=== PATIENT | male | born 1965 | race Caucasian/White ===

== ENCOUNTER → 2016-08-24 | Outpatient (REF) | payer OTHER ==
[~2016-08-24] MED LIST: AMBI10TA PO; CLON1TAB PO; NICO21PAT TD; OMEP40CA2 PO; XANA0.25 PO
== END ==
LOC: EEVIPCON 16:14 → M LAB REF 16:14
PROVIDERS: ATTEND Physician Assistant
DX: L02.512 Cutaneous abscess of left hand (principal)

== ENCOUNTER 2016-11-04 09:39 | Emergency (ER) | payer OTHER ==
[~2016-11-04] VITALS: Ht 167.6 cm; Wt 78.9 kg
[2016-11-04] MEDS ORDERED: SERT-138 (09:48)
[2016-11-04] MEDS ORDERED: ASPI81TA85 PO (09:48)
[2016-11-04] MEDS ORDERED: LOSA100T37 (09:48)
[2016-11-04] MEDS ORDERED: LR 1,000 ML IV ONE (10:30)
[2016-11-04 11:01] LABS: BASO % 0.5 % (0.0-1.0); EOS # 0.2 K/mm3 (0.0-0.50); EOS % 2.8 % (0.0-3.0); LARGE UNSTAINED CELL # 0.2 K/mm3 (0.0-0.4); LARGE UNSTAINED CELL % 2.5 % (0.0-4.0); LYMPH # 1.8 K/mm3 (1.5-4.5); LYMPH % 21.1 % (24.0-44.0); MEAN CORPUSCULAR HEMOGLOBIN 30.8 pg (27.0-33.0); MEAN CORPUSCULAR HGB CONC 34.1 g/dl (32.0-36.5); MEAN CORPUSCULAR VOLUME 90.4 fl (80.0-96.0); MONO # 0.5 K/mm3 (0.0-0.8); MONO % 6.3 % (0.0-5.0); NEUTROPHILS # 5.8 K/mm3 (1.8-7.7); NEUTROPHILS % 66.9 % (36.0-66.0); PLATELET COUNT, AUTOMATED 180 k/mm3 (150-450); RED CELL DISTRIBUTION WIDTH 14.2 % (11.5-14.5); WHITE BLOOD COUNT 8.7 K/mm3 (4.0-10.0)
[2016-11-04 11:28] LABS: ALBUMIN 3.8 GM/DL (3.2-5.2); ALBUMIN/GLOBULIN RATIO 1.09 (1.00-1.93); ALKALINE PHOSPHATASE 142 U/L (45-117); ALT/SGPT 49 U/L (12-78); ANION GAP 11 MEQ/L (8-16); AST/SGOT 29 U/L (15-37); BILIRUBIN,TOTAL 0.8 MG/DL (0.2-1.0); BLOOD UREA NITROGEN 15 MG/DL (7-18); CALCIUM LEVEL 8.8 MG/DL (8.5-10.1); CARBON DIOXIDE LEVEL 22 MEQ/L (21-32); CHLORIDE LEVEL 104 MEQ/L (98-107); CREATININE FOR GFR 0.73 MG/DL (0.70-1.30); GLOMERULAR FILTRATION RATE > 60.0 (>56); GLUCOSE, FASTING 110 MG/DL (70-105); POTASSIUM SERUM 3.4 MEQ/L (3.5-5.1); SODIUM LEVEL 137 MEQ/L (136-145); TOTAL PROTEIN 7.3 GM/DL (6.4-8.2)
[2016-11-04] MEDS ORDERED: LR 1,000 ML IV SCH (11:45)
[2016-11-04] MEDS ORDERED: POTASSIUM CHLORIDE 10 MEQ SR TABLET PO ONE (11:45)
[2016-11-04] MEDS ORDERED: ONDANSETRON 4 MG ORAL DISINTEGRATING TAB (S0181) PO ONE (11:45)
[2016-11-04] MEDS ORDERED: NAPR500T2 PO (12:44)
[2016-11-04] MEDS ORDERED: TYLE325T5 PO (12:46)
[2016-11-04 13:07] VITALS: BP 131/83
== END 2016-11-04 13:14 | disposition home or self-care (01) ==
LOC: M ED 10:39
DX: A08.4 Viral intestinal infection, unspecified (principal); I10 Essential (primary) hypertension; Z79.899 Other long term (current) drug therapy; Z79.82 Long term (current) use of aspirin; Z79.891 Long term (current) use of opiate analgesic; Z87.891 Personal history of nicotine dependence

== ENCOUNTER → 2018-01-17 | Outpatient (CLI) | payer OTHER ==
[2018-01-17 13:22] LABS: BASO # 0.1 10^3/uL (0.0-0.2); BASO % 0.9 % (0.0-1.0); EOS # 0.3 10^3/uL (0.0-0.50); EOS % 2.5 % (0.0-3.0); HEMATOCRIT 44.4 % (42.0-52.0); IMMATURE GRANULOCYTE % 1.4 % (0-3.0); LYMPH # 2.6 10^3/uL (1.5-4.5); LYMPH % 25.8 % (24.0-44.0); MEAN CORPUSCULAR HEMOGLOBIN 30.3 pg (27.0-33.0); MEAN CORPUSCULAR HGB CONC 33.8 g/dl (32.0-36.5); MEAN CORPUSCULAR VOLUME 89.7 fl (80.0-96.0); MONO # 0.8 10^3/uL (0.0-0.8); MONO % 7.5 % (0.0-5.0); NEUTROPHILS # 6.3 10^3/uL (1.8-7.7); NEUTROPHILS % 61.9 % (36.0-66.0); PLATELET COUNT, AUTOMATED 201 10^3/uL (150-450); RED BLOOD COUNT 4.95 10^6/uL (4.30-6.10); WHITE BLOOD COUNT 10.1 10^3/uL (4.0-10.0)
[2018-01-17 13:52] LABS: ALBUMIN 3.9 GM/DL (3.2-5.2); ALBUMIN/GLOBULIN RATIO 1.08 (1.00-1.93); ALKALINE PHOSPHATASE 104 U/L (45-117); ALT/SGPT 69 U/L (12-78); ANION GAP 8 MEQ/L (8-16); AST/SGOT 29 U/L (7-37); BILIRUBIN,TOTAL 0.4 MG/DL (0.2-1.0); BLOOD UREA NITROGEN 16 MG/DL (7-18); CALCIUM LEVEL 9.5 MG/DL (8.5-10.1); CARBON DIOXIDE LEVEL 28 MEQ/L (21-32); CHLORIDE LEVEL 103 MEQ/L (98-107); CHOLESTEROL LEVEL 280 MG/DL (<200); CHOLESTEROL RISK RATIO 8.235 (<5); CREATININE FOR GFR 0.89 MG/DL (0.70-1.30); GLOMERULAR FILTRATION RATE > 60.0 (>56); GLUCOSE, FASTING 142 MG/DL (70-100); HDL CHOLESTEROL 34 MG/DL (>40); NON-HDL-C 246 MG/DL; POTASSIUM SERUM 4.5 MEQ/L (3.5-5.1); SODIUM LEVEL 139 MEQ/L (136-145); TOTAL PROTEIN 7.5 GM/DL (6.4-8.2); TRIGLYCERIDES LEVEL 1042 MG/DL (<150)
== END ==
LOC: M WUC 09:19
DX: Z79.899 Other long term (current) drug therapy (principal)
CPT/HCPCS: 84443

== ENCOUNTER → 2018-02-13 | Outpatient (CLI) | payer OTHER ==
[2018-02-13 12:49] LABS: BASO % 0.5 % (0.0-1.0); EOS # 0.2 10^3/uL (0.0-0.50); EOS % 2.4 % (0.0-3.0); HEMATOCRIT 40.8 % (42.0-52.0); HEMOGLOBIN 14.3 g/dl (13.5-17.5); IMMATURE GRANULOCYTE % 0.6 % (0-3.0); LYMPH # 2.5 10^3/uL (1.5-4.5); LYMPH % 31.7 % (24.0-44.0); MEAN CORPUSCULAR VOLUME 88.5 fl (80.0-96.0); MONO # 0.7 10^3/uL (0.0-0.8); MONO % 8.4 % (0.0-5.0); NEUTROPHILS # 4.4 10^3/uL (1.8-7.7); NEUTROPHILS % 56.4 % (36.0-66.0); PLATELET COUNT, AUTOMATED 178 10^3/uL (150-450); RED BLOOD COUNT 4.61 10^6/uL (4.30-6.10); RED CELL DISTRIBUTION WIDTH 13.8 % (11.5-14.5); WHITE BLOOD COUNT 7.8 10^3/uL (4.0-10.0)
[2018-02-13 13:22] LABS: CONTROL LINE MONO INT CTR LINE PRESENT; MONO SCRN NEGATIVE (NEGATIVE)
[2018-02-15 00:06] LABS: MUMPS VIRUS IgM ANTIBODY <0.80 AU (0.00-0.79)
[2018-02-15 00:06] LABS: MUMPS VIRUS IgG ANTIBODY 68.1 AU/mL (Immune >10.9)
== END ==
LOC: M LAB 11:46
DX: B26.9 Mumps without complication (principal)
CPT/HCPCS: 86735

== ENCOUNTER → 2018-07-30 | Outpatient (CLI) | payer OTHER ==
[~2018-07-30] MED LIST changes: +ASPI81TA85 PO; -CLON1TAB PO; +CLON1TAB8 PO; +LOSA100T5; +NAPR-885 PO; +SERT-138; +TYLE325T5 PO
[2018-07-30 09:10] LABS: CHOLESTEROL LEVEL 287 MG/DL (<200); CHOLESTEROL RISK RATIO 6.833 (<5); HDL CHOLESTEROL 42 MG/DL (>40); NON-HDL-C 245 MG/DL; TRIGLYCERIDES LEVEL 480 MG/DL (<150)
[2018-07-31 08:38] LABS: LDL DIRECT 163 mg/dL (0-99)
== END ==
LOC: M LAB 08:04
PROVIDERS: ATTEND Family Medicine
DX: E78.5 Hyperlipidemia, unspecified (principal)

== ENCOUNTER 2019-02-06 10:56 | Emergency (ER) | payer OTHER, BC ==
[~2019-02-06] VITALS: Ht 167.6 cm; Wt 84.1 kg
[~2019-02-06 10:56] MED LIST changes: +NICO21DI3 TD; -NICO21PAT TD; -OMEP40CA2 PO; +OMEP40CA97 PO
[2019-02-06] MEDS ORDERED: KETOROLAC 60 MG/2 ML VIAL (J1885) IM ONE (13:00)
--- NOTE | 2019-02-06 14:00 | REP ---
REASON FOR EXAM: Pain after trauma. COMPARISON: None. Vertebral body height and alignment is within normal limits. The disc spaces are symmetric and relatively well maintained. There is no spondylolysis or spondylolisthesis. The pedicles are intact bilaterally. IMPRESSION: Within normal limits for the patient's age. Electronically Signed by Favian Salazar DO 02/06/2019 02:18 P
--- NOTE | 2019-02-06 14:04 | REP ---
REASON: Pain after trauma. PRIORS: None. AP pelvis and bilateral hips. AP PELVIS: There is slight rather symmetric appearing hip joint space narrowing slightly asymmetric on the right. There is no acute fracture, dislocation, or subluxation. There is no prominent marginal osteophytosis or buttressing. IMPRESSION: Slight degenerative changes. TWO VIEWS OF THE RIGHT HIP: There is slight asymmetric hip joint space narrowing without buttressing or marginal osteophytosis. There is a minimal cam deformity. There is no fracture, dislocation or subluxation. LEFT HIP, TWO VIEWS: Mild rather symmetric appearing hip joint space narrowing without fracture, dislocation or subluxation. There is no prominent marginal osteophytosis or buttressing. Electronically Signed by Favian Salazar DO 02/06/2019 02:18 P
[2019-02-06] MEDS ORDERED: KETO10TAB PO (14:27)
[2019-02-06 14:38] VITALS: BP 134/90
== END 2019-02-06 14:35 | disposition home or self-care (01) ==
LOC: M ED 10:56
DX: S70.01XA Contusion of right hip, initial encounter (principal); S70.02XA Contusion of left hip, initial encounter; S39.012A Strain of muscle, fascia and tendon of lower back, initial encounter; V43.53XA Car driver injured in collision with pick-up truck in traffic accident, initial encounter
CPT/HCPCS: 72110; 73521; 96372; 99283; J1885

== ENCOUNTER → 2020-01-19 | Outpatient (CLI) | payer BC ==
[~2020-01-19] MED LIST changes: -ASPI81TA85 PO; +ASPI81TA86 PO; +ATOR80TA59; +BUPR150T3; +BUPR300T92; +CLON1TAB8; +DOXY100T27; +KETO10TAB PO; +LOSA50TA5; +OMEP-218; +TERB250T12
[2020-02-15 19:32] LABS: BASO # 0.1 10^3/uL (0.0-0.2); BASO % 0.4 % (0.0-1.0); EOS # 0.2 10^3/uL (0.0-0.5); EOS % 1.5 % (0.0-3.0); HEMATOCRIT 42.7 % (42.0-52.0); HEMOGLOBIN 14.4 g/dl (13.5-17.5); LYMPH # 3.6 10^3/uL (1.5-5.0); LYMPH % 24.2 % (24.0-44.0); MEAN CORPUSCULAR HEMOGLOBIN 29.7 pg (27.0-33.0); MEAN CORPUSCULAR HGB CONC 33.7 g/dl (32.0-36.5); MONO # 0.9 10^3/uL (0.0-0.8); MONO % 6.2 % (0.0-5.0); NEUTROPHILS # 9.9 10^3/uL (1.5-8.5); NEUTROPHILS % 67.2 % (36.0-66.0); PLATELET COUNT, AUTOMATED 203 10^3/uL (150-450); RED BLOOD COUNT 4.85 10^6/uL (4.30-6.10); WHITE BLOOD COUNT 14.7 10^3/uL (4.0-10.0)
== END ==
LOC: M LAB 08:14
PROVIDERS: ATTEND Family Medicine
DX: E78.5 Hyperlipidemia, unspecified (principal)

== ENCOUNTER 2020-03-14 14:07 | Emergency (ER) | payer BC ==
[~2020-03-14] VITALS: Ht 167.6 cm; Wt 81.8 kg
[~2020-03-14 14:07] MED LIST changes: -ATOR80TA59; -BUPR150T3; -BUPR300T92; -CLON1TAB8; -DOXY100T27; -LOSA50TA5; -OMEP-218; -TERB250T12
[2020-03-14] MEDS ORDERED: ATOR80TA59 (14:17)
[2020-03-14] MEDS ORDERED: BUPR300T92 (14:17)
[2020-03-14] MEDS ORDERED: CLON1TAB8 (14:17)
[2020-03-14] MEDS ORDERED: LOSA50TA5 (14:17)
[2020-03-14] MEDS ORDERED: TERB250T12 (14:17)
[2020-03-14] MEDS ORDERED: DOXY100T27 (14:17)
[2020-03-14] MEDS ORDERED: OMEP-218 (14:17)
[2020-03-14] MEDS ORDERED: BUPR150T3 (14:17)
[2020-03-14] MEDS ORDERED: NORCO, ANEXSIA 5/325MG TABLET (HYDROcodone/ACETAMINOPHEN) PO ONE (16:30)
--- NOTE | 2020-03-14 17:32 | REPVR ---
PROCEDURE INFORMATION: Exam: XR Left Knee Exam date and time: 03/14/2020 4:17 PM Age: 54 years old Clinical indication: Injury or trauma; Fall; Initial encounter; Sprain or strain; Patella or knee; Left; Additional info: Fall pain TECHNIQUE: Imaging protocol: XR Left knee. Views: 4 or more views. COMPARISON: No relevant prior studies available. FINDINGS: There is a thin band of calcium along the inferior aspect of the patella near the patellar tendon insertion. This could be calcium from an old injury or new injury. There is only minimal soft tissue prominence. No lucent fracture line is seen. IMPRESSION: 1. No evidence of major fracture. 2. Thin band of calcium anterior patella may be old injury or new. Electronically signed by: Will Martines On 03/14/2020 17:32:15 PM
[2020-03-14 18:03] VITALS: BP 132/92
== END 2020-03-14 18:05 | disposition home or self-care (01) ==
LOC: M ED 14:07
DX: S86.912A Strain of unspecified muscle(s) and tendon(s) at lower leg level, left leg, initial encounter (principal); W19.XXXA Unspecified fall, initial encounter; Y92.018 Other place in single-family (private) house as the place of occurrence of the external cause; I10 Essential (primary) hypertension; K21.9 Gastro-esophageal reflux disease without esophagitis; Z79.899 Other long term (current) drug therapy; Z79.82 Long term (current) use of aspirin

== ENCOUNTER 2020-03-22 09:57 | Outpatient (RCR) | payer BC ==
[~2020-03-22 09:57] MED LIST changes: +ATOR80TA59; +BUPR150T3; +BUPR300T92; +CLON1TAB8; +DOXY100T27; +LOSA50TA5; +OMEP-218; +TERB250T12
== END 2020-03-23 ==
LOC: M PT 09:57
PROVIDERS: ATTEND Physician Assistant
DX: M50.10 Cervical disc disorder with radiculopathy, unspecified cervical region (principal)

== ENCOUNTER 2020-04-19 10:22 | Outpatient (RCR) | payer BC | END 2020-04-23 | LOC: M PT 10:22 | PROVIDERS: ATTEND Physician Assistant | DX: Z47.89 Encounter for other orthopedic aftercare (principal); M54.12 Radiculopathy, cervical region; M50.30 Other cervical disc degeneration, unspecified cervical region ==

== ENCOUNTER 2020-05-17 09:07 | Outpatient (RCR) | payer BC | END 2020-05-23 | LOC: M PT 09:07 | PROVIDERS: ATTEND Physician Assistant | DX: M54.12 Radiculopathy, cervical region (principal); M50.30 Other cervical disc degeneration, unspecified cervical region ==

== ENCOUNTER 2020-05-31 09:15 | Outpatient (RCR) | payer BC ==
[2020-06-22] MEDS ORDERED: VALI5TAB PO (00:56)
[2020-06-22] MEDS ORDERED: LOSA50TA5 PO (04:36)
[2020-06-22] MEDS ORDERED: DIAZ5TAB PO (04:36)
[2020-06-22] MEDS ORDERED: ACET-897 PO (04:36)
[2020-06-22] MEDS ORDERED: ATOR80TA59 PO (04:36)
[2020-06-22] MEDS ORDERED: OMEP1CAP73 PO (04:36)
[2020-06-22] MEDS ORDERED: BUPR300T92 PO (04:36)
[2020-06-22] MEDS ORDERED: ASPI-161 PO (04:36)
[2020-06-22] MEDS ORDERED: ZOLP10TA2 PO (04:36)
[2020-06-24] MEDS ORDERED: AMOX875T2 PO (11:42)
== END 2020-06-23 ==
LOC: M PT 09:15
PROVIDERS: ATTEND Physician Assistant
DX: Z47.89 Encounter for other orthopedic aftercare (principal); M54.12 Radiculopathy, cervical region

== ENCOUNTER 2020-06-21 22:02 | Inpatient (IN) | payer BC ==
[~2020-06-21] VITALS: Ht 167.6 cm; Wt 84.1 kg
[2020-06-21] MEDS ORDERED: NS 1,000 ML IV ONE (23:00)
[2020-06-21] MEDS ORDERED: KETOROLAC 30 MG/ML 1ML VIAL IV ONE (23:00)
[2020-06-22] MEDS ORDERED: ONDANSETRON 4MG/2ML VIAL IV ONE
[2020-06-22 00:20] LABS: INR 0.99; PROTHROMBIN TIME 13.3 SECONDS (12.5-14.3)
[2020-06-22 00:21] LABS: BASO # 0.1 10^3/uL (0.0-0.2); BASO % 0.4 % (0.0-1.0); EOS # 0.2 10^3/uL (0.0-0.5); EOS % 1.1 % (0.0-3.0); HEMATOCRIT 43.2 % (42.0-52.0); HEMOGLOBIN 14.2 g/dl (13.5-17.5); LYMPH # 3.2 10^3/uL (1.5-5.0); LYMPH % 19.1 % (24.0-44.0); MEAN CORPUSCULAR HEMOGLOBIN 28.7 pg (27.0-33.0); MEAN CORPUSCULAR HGB CONC 32.9 g/dl (32.0-36.5); MEAN CORPUSCULAR VOLUME 87.3 fl (80.0-96.0); MONO # 1.5 10^3/uL (0.0-0.8); MONO % 8.6 % (0.0-5.0); NEUTROPHILS # 11.8 10^3/uL (1.5-8.5); NEUTROPHILS % 69.7 % (36.0-66.0); PARTIAL THROMBOPLASTIN TIME 36.5 SECONDS (24.2-38.5); PLATELET COUNT, AUTOMATED 207 10^3/uL (150-450); RED BLOOD COUNT 4.95 10^6/uL (4.30-6.10); WHITE BLOOD COUNT 16.9 10^3/uL (4.0-10.0)
[2020-06-22] MEDS: GASTROGRAFIN SOLUTION 30ML PO SCH ×2 (00:28→00:57)
[2020-06-22 00:35] LABS: ALT/SGPT 50 U/L (12-78); BILIRUBIN,DIRECT 0.2 MG/DL (0.0-0.2); BILIRUBIN,TOTAL 0.8 MG/DL (0.2-1.0); BLOOD UREA NITROGEN 9 MG/DL (7-18); CALCIUM LEVEL 9.5 MG/DL (8.5-10.1); CARBON DIOXIDE LEVEL 26 MEQ/L (21-32); CHLORIDE LEVEL 104 MEQ/L (98-107); CREATININE FOR GFR 0.88 MG/DL (0.70-1.30); GLOMERULAR FILTRATION RATE > 60.0 (>56); GLUCOSE, FASTING 135 MG/DL (70-100); LIPASE 65 U/L (73-393); POTASSIUM SERUM 3.6 MEQ/L (3.5-5.1); SODIUM LEVEL 136 MEQ/L (136-145); TOTAL PROTEIN 7.7 GM/DL (6.4-8.2)
[2020-06-22] MEDS ORDERED: VALI5TAB PO (00:56)
[2020-06-22] MEDS ORDERED: ISOVUE-370 76% 100ML VIAL As Ordered ONE (01:51)
[2020-06-22] MEDS ORDERED: MORPHINE 2 MG/ML 1ML VIAL (J2270) IV ONE (02:30)
--- NOTE | 2020-06-22 02:33 | REPVR ---
PROCEDURE INFORMATION: Exam: CT Abdomen and Pelvis with Contrast Exam date and time: 06/22/20 (1:56am) Age: 54 years old Clinical indication: Left-sided abdominal pain. Possible perforated diverticulitis. TECHNIQUE: Imaging protocol: Computed tomography of the abdomen and pelvis with intravenous contrast. Radiation optimization: All CT scans at this facility use at least one of these dose optimization techniques: automated exposure control; mA and/or kV adjustment per patient size (includes targeted exams where dose is matched to clinical indication); or iterative reconstruction. Contrast material: Iso Contrast volume: 100 ml Contrast route: IV Other contrast: Oral, ggraphin, 600; COMPARISON: CT ABDOMEN PELVIS of 03/10/16 FINDINGS: Lower lung smyth: Mild hypoventilatory changes at the right lung base. No pleural effusions. Liver: Normal. No solid mass. Gallbladder and bile ducts: Normal. No calcified stones. No ductal dilatation. Pancreas: No ductal dilatation. Inflamed distal pancreas, with peripancreatic hazy fat changes. Spleen: Prominent spleen. Adrenal glands: Normal. No mass. Kidneys and ureters: No hydronephrosis. Right renal cyst (18 mm size), posterolaterally at the midpole level. Stomach and bowel: Thickened, inflamed left colon with scattered diverticuli and pericolic inflammation. No abscess. No bowel obstruction. Diseased colonic segment extends from splenic flexure to distal left colon (approx. 11 cm length of diseased colon). Inflammation also involves the distal pancreas, also. Sigmoid diverticulosis changes also noted. Appendix: A normal appendix is visualized. Intraperitoneal space: No free air. No significant fluid collection. Vasculature: Unremarkable. No abdominal aortic aneurysm. Lymph nodes: Unremarkable. No enlarged lymph nodes. Urinary bladder: Unremarkable as visualized. Reproductive: Unremarkable as visualized. Bones/joints: Unremarkable. No acute fracture. Soft tissues: Unremarkable. IMPRESSION: Acute perforated diverticulitis involving the left colon. Moderate pericolic inflammation. No abscess. No bowel obstruction. No free air. Inflammation also involves the distal pancreas (perhaps secondary to the adjacent colonic inflammation). Sigmoid diverticulosis changes also present. Electronically signed by: Betsy Hopper On 06/22/2020 02:32:58 AM
[2020-06-22] MEDS ORDERED: CIPROFLOXACIN 400 MG in IV 1 EA IV ONE (03:00)
--- NOTE | 2020-06-22 03:17 | ED PDOC ---
Post-Departure Follow-Up 54 yo M with a history significant for diverticular disease who presents with ab dominal pain. He reports that he had a flare of his diverticulitis on June 05, and called his doctor the next day who started him on a 7 day course of Cipro and Flagyl. He completed the medication, and was feeling better until last night when he suddenly developed sharp, constant LUQ pain that radiates to his epigastrum. He took Tylenol with no relief. His associated symptoms include nausea, vomiting, and SOB (due to pain). He denies fever, chills, increased sweating, diarrhea, bloody stool, CP, leg pain/swelling, recent travel/hospitalization, palpitations or other symptoms. He has LUQ and epigastric tenderness with guarding. He is tachycardic, but afebrile, hemodynamically stable and nontoxic appearing. His symptoms are concerning for complicated diveriticulitis vs pancreatitis vs hepatobiliary disease. Labs, imaging and EKG were obtained. He was given IVF and Toradol 30mg IV for analgesia. His work up was notable for acute perforated diverticulitis. He was started on IV abx. Dr. Rodriguez was consulted, and will admit to his service if his imaging indeed shows diverticulitis with perforation. However, if his imaging is cons istent with uncomplicated diverticulitis he will recommended a medicine admission. KWADWO LARES MD Jun 22, 2020 03:17
[2020-06-22] MEDS ORDERED: D5W/0.45% SODIUM CHLORIDE 1,000 ML IV SCH (03:30)
[2020-06-22] MEDS ORDERED: MORPHINE 4 MG/ML 1ML VIAL/SYRINGE (J2270) IV ONE (03:45)
[2020-06-22] MEDS ORDERED: metroNIDAZOLE 500 MG in IV 1 EA IV ONE (04:00)
[2020-06-22] MEDS ORDERED: diazePAM 5MG TABLET PO PRN (04:15)
[2020-06-22] MEDS ORDERED: KETOROLAC 30 MG/ML 1ML VIAL IV PRN (04:15)
[2020-06-22] MEDS ORDERED: ACETAMINOPHEN TAB 650MG DOSE (2X325MG) PO PRN (04:15)
[2020-06-22] MEDS ORDERED: ONDANSETRON 4MG/2ML VIAL IV PRN (04:15)
[2020-06-22] MEDS ORDERED: ACET-897 PO (04:36)
[2020-06-22] MEDS ORDERED: ATOR80TA59 PO (04:36)
[2020-06-22] MEDS ORDERED: LOSA50TA5 PO (04:36)
[2020-06-22] MEDS ORDERED: BUPR300T92 PO (04:36)
[2020-06-22] MEDS ORDERED: OMEP1CAP73 PO (04:36)
[2020-06-22] MEDS ORDERED: ZOLP10TA2 PO (04:36)
[2020-06-22] MEDS ORDERED: ASPI-161 PO (04:36)
[2020-06-22] MEDS ORDERED: DIAZ5TAB PO (04:36)
[2020-06-22] MEDS: PIPERACILLIN/TAZOBACTAM SOD 3.375 GM in D5W MINI-BAG PLUS 50 ML IV SCH ×3 (05:53→17:43)
[2020-06-22] MEDS: MORPHINE 2 MG/ML 1ML VIAL (J2270) IV PRN ×4 (07:38→21:53)
[2020-06-22] MEDS: LR 1,000 ML IV SCH ×2 (07:38→21:53)
--- NOTE | 2020-06-22 07:46 | ECGEPIP ---
[facility] - ED Test Date: 2020-06-21 Pat Name: VIKI CONNER Department: Room: - Gender: Male Rigger Up: deandre : 1965 Requested By: KWADWO Balderas Order Number: [id number] Reading MD: Conner Verma Measurements Intervals [place]ult Rate: 108 P: 41 AK: 363 QRS: 14 QRSD: 98 T: 53 QT: 332 QTc: 447 Interpretive Statements Sinus tachycardia The computer has read pacer spikes which appears to be artifact Comparison tracing not on file Electronically Signed on 06-22-2020 7:46:08 EST by Conner Verma
[2020-06-22] MEDS: LOSARTAN 50MG TABLET PO SCH (09:18)
[2020-06-22] MEDS: ATORVASTATIN 20 MG TAB PO SCH (09:18)
[2020-06-22] MEDS: OMEPRAZOLE 20 MG CAP PO SCH (09:18)
[2020-06-22] MEDS: buPROPion **XL** TABLET 150MG (WELLBUTRIN XL) PO SCH (09:18)
[2020-06-22 12:09] LABS: BASO % 0.3 % (0.0-1.0); EOS # 0.1 10^3/uL (0.0-0.5); EOS % 0.7 % (0.0-3.0); HEMATOCRIT 38.3 % (42.0-52.0); HEMOGLOBIN 13.1 g/dl (13.5-17.5); LYMPH # 1.9 10^3/uL (1.5-5.0); MEAN CORPUSCULAR HEMOGLOBIN 30.2 pg (27.0-33.0); MEAN CORPUSCULAR HGB CONC 34.2 g/dl (32.0-36.5); MEAN CORPUSCULAR VOLUME 88.2 fl (80.0-96.0); MONO # 1.3 10^3/uL (0.0-0.8); MONO % 8.4 % (0.0-5.0); NEUTROPHILS # 12.2 10^3/uL (1.5-8.5); NEUTROPHILS % 78.2 % (36.0-66.0); PLATELET COUNT, AUTOMATED 188 10^3/uL (150-450); RED BLOOD COUNT 4.34 10^6/uL (4.30-6.10); WHITE BLOOD COUNT 15.6 10^3/uL (4.0-10.0)
[2020-06-22 14:00] VITALS: BP 138/66
[2020-06-22 18:00] VITALS: BP 139/88
--- NOTE | 2020-06-22 20:39 | IPN ---
PROGRESS NOTE DATE: 06/22/2020 HISTORY OF PRESENT ILLNESS: The patient was admitted very early this morning with a diagnosis of a contained perforation of diverticulitis in the proximal descending colon with significant pericolonic inflammatory changes. There was no evidence of free air. He has a history of previous sigmoid diverticulitis but never in this particular area. He was started on Zosyn and only recently came to the floor from a holding bed in the Emergency Department. VITAL SIGNS: He has been afebrile since admission. His pulse has ranged in the 90's to low 100's. His blood pressure is good and his room air oxygen saturation is normal. Intake and Output shows that he has taken 300 mL of clear liquids. His urine output appears adequate though he reports that the urine has been somewhat dark. PHYSICAL EXAMINATION: The patient is lying quietly on the hospital bed. He reports that the pain is slightly better than it had been in the middle of the night. The abdomen is mildly protuberant. He does have bowel sounds. There is tenderness on palpation in the left upper quadrant and in the left flank area, but it does seem slightly diminished from early in the morning. LABORATORY STUDIES: The patient had a repeat CBC with a differential at approximately noon today. This revealed a white count of 16, hemoglobin 13, hematocrit 38 and a platelet count of 188,000. Differential count showed 78% neutrophils, 12% lymphocytes and 8% monocytes. IMPRESSION: The patient is doing well on Zosyn currently. He reports that his discomfort is slightly diminished. His white count remains approximately unchanged with a slight left shift. PLAN: The patient will remain on the Zosyn. I will not advance his diet at this point and he will remain on clear liquids. We will monitor his urine output. I will repeat another CBC with a differential in the morning. CARYN
[2020-06-22] MEDS: zolPIDEM TARTRATE 5 MG TAB PO PRN (21:52)
[2020-06-22 22:00] VITALS: BP 139/88
[2020-06-23] MEDS: PIPERACILLIN/TAZOBACTAM SOD 3.375 GM in D5W MINI-BAG PLUS 50 ML IV SCH ×5 (00:31→23:08)
[2020-06-23 02:00] VITALS: BP 137/86
[2020-06-23] MEDS: MORPHINE 2 MG/ML 1ML VIAL (J2270) IV PRN (05:06)
[2020-06-23 06:00] VITALS: BP 133/85
[2020-06-23] MEDS ORDERED: FLUBLOK(EGG FREE)(QUAD)INFLUENZA VACC 0.5ML SYRINGE 18YRS & OLDER IM ONE (09:00)
[2020-06-23] MEDS: buPROPion **XL** TABLET 150MG (WELLBUTRIN XL) PO SCH (09:26)
[2020-06-23] MEDS: ATORVASTATIN 20 MG TAB PO SCH (09:26)
[2020-06-23] MEDS: OMEPRAZOLE 20 MG CAP PO SCH (09:26)
[2020-06-23] MEDS: LOSARTAN 50MG TABLET PO SCH (09:28)
[2020-06-23 09:30] LABS: BASO # 0.1 10^3/uL (0.0-0.2); BASO % 0.5 % (0.0-1.0); EOS # 0.1 10^3/uL (0.0-0.5); EOS % 0.9 % (0.0-3.0); HEMATOCRIT 38.5 % (42.0-52.0); HEMOGLOBIN 12.2 g/dl (13.5-17.5); LYMPH # 2.4 10^3/uL (1.5-5.0); LYMPH % 21.9 % (24.0-44.0); MEAN CORPUSCULAR HEMOGLOBIN 28.6 pg (27.0-33.0); MEAN CORPUSCULAR HGB CONC 31.7 g/dl (32.0-36.5); MEAN CORPUSCULAR VOLUME 90.2 fl (80.0-96.0); MONO # 0.9 10^3/uL (0.0-0.8); MONO % 8.4 % (0.0-5.0); NEUTROPHILS # 7.4 10^3/uL (1.5-8.5); NEUTROPHILS % 67.8 % (36.0-66.0); PLATELET COUNT, AUTOMATED 209 10^3/uL (150-450); RED BLOOD COUNT 4.27 10^6/uL (4.30-6.10); WHITE BLOOD COUNT 10.9 10^3/uL (4.0-10.0)
[2020-06-23 09:47] LABS: BLOOD UREA NITROGEN 7 MG/DL (7-18); CALCIUM LEVEL 8.7 MG/DL (8.5-10.1); CARBON DIOXIDE LEVEL 26 MEQ/L (21-32); CHLORIDE LEVEL 109 MEQ/L (98-107); GLOMERULAR FILTRATION RATE > 60.0 (>56); GLUCOSE, FASTING 137 MG/DL (70-100); POTASSIUM SERUM 3.9 MEQ/L (3.5-5.1); SODIUM LEVEL 140 MEQ/L (136-145)
[2020-06-23] MEDS ORDERED: IBUPROFEN 600MG TAB PO PRN (11:00)
[2020-06-23] MEDS ORDERED: PERCOCET 5MG/325MG TAB PO PRN (11:00)
--- NOTE | 2020-06-23 12:24 | IPN ---
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 His white count was elevated and he had marked tenderness. He reports that he is feeling better since yesterday. PHYSICAL EXAMINATION: VITAL SIGNS: Show that he has been afebrile over the past 24 hours. Pulse is in the low 90s and his blood pressure is good. Room air oxygen saturation is normal. Intake and output show that yesterday he had 3100 in with only 100 mL of urine recorded but he reports that he has been getting up to void. His urine output today so far is 1300 by comparison. GENERAL: The patient is lying quietly on the hospital bed. He is moving much more comfortably today. He denies any nausea or vomiting. HEART: Regular rhythm. LUNGS: Clear. ABDOMEN: Minimally protuberant. He has active bowel sounds. The abdomen is soft throughout, only some mild tenderness high in the left upper quadrant. LABORATORY STUDIES: White count has come down to 11 thousand today from 16 yesterday. Hemoglobin is 12 with hematocrit 38 and platelet count is 209 thousand. Differential count is slightly more normal with neutrophil count of 68, lymphocytes of 22, monocytes of 8. Chemistry profile shows slight elevation of his glucose at 137 for a non-fasting specimen. IMPRESSION: The patient is clearly much more comfortable today with significantly reduced pain and tenderness. He has tolerated clear liquids. PLAN: I will put him back on regular diet. I will stop his IV fluid as he appears to be taking adequate PO liquids. I will recheck his CBC in the morning and if he continues to be comfortable and tolerates his regular diet he can be discharged home tomorrow on oral antibiotics for outpatient follow up. CARYN
[2020-06-23 13:51] VITALS: BP 128/83
--- NOTE | 2020-06-23 14:20 | HPE ---
HISTORY AND PHYSICAL DATE OF ADMISSION: 06/22/2020 ADMITTING DIAGNOSIS: Descending colon diverticulitis, possible contained diverticular perforation. HISTORY OF PRESENT ILLNESS: The patient is a pleasant 54-year-old man who presented to the emergency department at approximately 10 o'clock in the evening on the 21 of June complaining of abdominal pain. He reports a history of previous diverticulitis. There have been several episodes noted over the past few years. Generally, the discomfort has been localized to his left lower quadrant. He reports that he developed some discomfort consistent with another attack of his diverticulitis in his left lower quadrant back on about the 06 of June. He contacted his primary physician's office and was started on ciprofloxacin and Flagyl as an outpatient. He apparently did well with resolution of his abdominal pain. On , the patient noted the onset of some vomiting leading to some dry heaves. This seems to improve; but on Saturday night the 20 of June, he noted the onset of some abdominal discomfort more in the left upper quadrant. 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 He noted some chills on Saturday night the . He was awakened by more significant abdominal pain on the . The discomfort persisted and became more severe in his left upper quadrant. He noted discomfort with movement and with deep inspiration. He presented to the emergency department where he was found to be tachycardic. His white blood cell count was elevated and a CT scan of the abdomen and pelvis showed inflammatory changes involving the proximal descending colon with thickening of the colonic wall and significant pericolonic inflammatory changes at the level of the tail of the pancreas. I was consulted, and the patient is now admitted for management of his diverticulitis with possible contained diverticular perforation. ALLERGIES: The patient denies any known drug allergies. MEDICATIONS: Include only - - Tylenol as needed for pain - aspirin 81 mg daily - losartan/hydrochlorothiazide 50/12.5 mg p.o. daily - omeprazole 40 mg p.o. daily - atorvastatin 80 mg p.o. daily - bupropion hydrochloride XL 300 p.o. daily - diazepam 2.5 mg p.o. t.i.d. as needed for anxiety PAST MEDICAL HISTORY: Significant for some hypertension. He has a history of anxiety. He has some shoulder pains. He has a history of some insomnia. PAST SURGICAL HISTORY: Significant for bilateral shoulder surgeries for rotator cuff repairs. He had a colonoscopy he believes about five or six years ago. SOCIAL HISTORY: The patient is . He is a former smoker and had been smoking about one pack per day, but reports he has had no tobacco in about six months. He denies any alcohol use or use of unprescribed medications. REVIEW OF SYSTEMS: Reveals no history of chest pain or palpitations. He has no shortness of breath, cough, wheezing, or sputum production. He denies any melena or hematochezia. He has had no history of pancreatitis, hepatitis, or peptic ulcer disease. He has a distant history of hepatitis. He has no dysuria or hematuria. He has some pains in his shoulders, but no other significant orthopedic issues. There is no history of DVT or pulmonary embolus. He denies any history of seizure or stroke. He reports that he has had occasional episodes that he describes as a sudden onset of dizziness with a sense of impending fall and he has just sat down and these pass rapidly. PHYSICAL EXAMINATION: GENERAL APPEARANCE: Revealed a middle-aged man lying quietly on the hospital stretcher. VITAL SIGNS: When I went to see him most recently showed him to be afebrile. His pulse was in the mid to upper 90s with a normal blood pressure and a normal room air oxygen saturation. SKIN: Warm and dry. Sclerae are anicteric. Mucous membranes are moist. NECK: Supple without mass or bruit. HEART: Shows a regular rhythm. LUNGS: Clear. He clearly has pain in his left upper quadrant with deep inspiration. ABDOMEN: Perhaps mildly distended. He has bowel sounds present. There is no evidence inguinal or umbilical hernia. The abdomen is soft, but there is marked tenderness to palpation high in the left upper quadrant, particularly laterally and along the left flank. EXTREMITIES: Without peripheral edema and he has palpable radial and pedal pulses. LABORATORY DATA: In the emergency department showed a white count of 17,000, hemoglobin 14, hematocrit 43, and a platelet count of 207,000. His differential count showed 70% neutrophils, 19% lymphocytes, and 9% monocytes. Chemistry profile showed a sodium of 136, potassium 3.6, chloride 104, CO2 of 26, BUN of 9, creatinine 0.9, and a glucose of 135. Liver function tests are entirely normal with a normal lipase. Coagulation factors were normal. His COVID testing was negative. IMAGING: CT scan of the abdomen and pelvis I reviewed personally. The radiologist had interpreted this as showing acute perforated diverticulitis involving the left colon with some moderate pericolonic inflammation. There was no evidence of free air or abscess. On my review, I would agree that he has some significant pericolonic inflammation with a small amount of free fluid in this area. There is some thickening of this segment of the colon. He clearly has diverticulosis involving the sigmoid and descending colon at least. There may be a small air bubble within the wall of the colon in this area, which could represent a diverticulum or potential contained perforation. IMPRESSION: Proximal descending diverticulitis with marked left upper quadrant pain and tenderness. PLAN: The patient will be admitted for antibiotic therapy. I have recommended that we place him on Zosyn for antibiotic coverage. He has had a course of ciprofloxacin and Flagyl recently. I have recommended that he remain n.p.o. at this point until we see how he responds. We will repeat a CBC with differential in the morning. He will be provided with analgesics as necessary. If he responds readily to the antibiotics, I advised him that he will likely be able to be discharged in the next two to three days on oral antibiotics. The patient had an opportunity to ask questions and these were answered to the best of my ability. He is agreeable with the plan for admission.
[2020-06-23 19:21] VITALS: BP_SYST 134; BP_SYST 143; BP_DIAS 101; BP_DIAS 92
[2020-06-23 22:00] VITALS: BP 136/76
[2020-06-23] MEDS: zolPIDEM TARTRATE 5 MG TAB PO PRN (23:08)
[2020-06-24 02:00] VITALS: BP 114/71
[2020-06-24] MEDS: PIPERACILLIN/TAZOBACTAM SOD 3.375 GM in D5W MINI-BAG PLUS 50 ML IV SCH (05:47)
[2020-06-24 06:00] VITALS: BP 112/75
[2020-06-24 07:41] LABS: BASO # 0.1 10^3/uL (0.0-0.2); BASO % 0.7 % (0.0-1.0); EOS # 0.2 10^3/uL (0.0-0.5); EOS % 2.6 % (0.0-3.0); HEMATOCRIT 37.9 % (42.0-52.0); HEMOGLOBIN 12.2 g/dl (13.5-17.5); LYMPH # 1.7 10^3/uL (1.5-5.0); LYMPH % 23.4 % (24.0-44.0); MEAN CORPUSCULAR HEMOGLOBIN 28.6 pg (27.0-33.0); MEAN CORPUSCULAR HGB CONC 32.2 g/dl (32.0-36.5); MEAN CORPUSCULAR VOLUME 88.8 fl (80.0-96.0); MONO # 0.6 10^3/uL (0.0-0.8); MONO % 8.3 % (0.0-5.0); NEUTROPHILS # 4.8 10^3/uL (1.5-8.5); NEUTROPHILS % 64.7 % (36.0-66.0); PLATELET COUNT, AUTOMATED 220 10^3/uL (150-450); RED BLOOD COUNT 4.27 10^6/uL (4.30-6.10); WHITE BLOOD COUNT 7.4 10^3/uL (4.0-10.0)
[2020-06-24] MEDS: OMEPRAZOLE 20 MG CAP PO SCH (09:34)
[2020-06-24] MEDS: buPROPion **XL** TABLET 150MG (WELLBUTRIN XL) PO SCH (09:34)
[2020-06-24 09:35] VITALS: BP 132/80
[2020-06-24] MEDS: LOSARTAN 50MG TABLET PO SCH (09:35)
[2020-06-24] MEDS: ATORVASTATIN 20 MG TAB PO SCH (09:36)
[2020-06-24] MEDS ORDERED: AMOX875T2 PO (11:42)
== END 2020-06-24 12:10 | disposition home or self-care (01) | DRG 244 ==
LOC: M ED 22:02 → M ED INP 06-22 04:08 → M MSPAV 06-22 13:55
PROVIDERS: ADMIT Surgery; ATTEND Surgery
DX: K57.20 Diverticulitis of large intestine with perforation and abscess without bleeding (principal)

== ENCOUNTER → 2020-09-14 | Outpatient (CLI) | payer BC ==
[~2020-09-14] MED LIST changes: +ACET-897 PO; +AMOX875T2 PO; +ASPI-161 PO; +ATOR80TA59 PO; +BUPR150T12; -BUPR150T3; +BUPR300T92 PO; +DIAZ5TAB PO; +LOSA50TA5 PO; +OMEP1CAP73 PO; +VALI5TAB PO; +ZOLP10TA2 PO
== END ==
LOC: M LABSMTC 11:34
PROVIDERS: ATTEND Anesthesiology
DX: Z01.812 Encounter for preprocedural laboratory examination (principal); Z20.822 Contact with and (suspected) exposure to COVID-19

== ENCOUNTER 2020-09-19 09:27 | Day surgery (SDC) | payer OTHER ==
[~2020-09-19] VITALS: Ht 167.6 cm; Wt 80.7 kg
[~2020-09-19 09:27] MED LIST changes: +NS 1,000 ML IV ONE
[2020-09-19] MEDS ORDERED: VITMTA PO (09:52)
[2020-09-19] MEDS ORDERED: LIDOCAINE 2% 100MG/5ML SDV (FOR ANES.) As Ordered ONE (10:39)
[2020-09-19] MEDS ORDERED: propofoL 200 MG/20 ML VIAL As Ordered ONE (10:39)
--- NOTE | 2020-09-19 11:08 | ROOR ---
Patient Name: Danie Cooper Procedure Date: 09/19/2020 10:50 AM Date of : 1965 Age: 54 Room: [facility] Gender: Male Note Status: Finalized Procedure: Total Colonoscopy to Cecum Indications: Screening for colorectal malignant neoplasm Providers: Adolph Hernandez MD Referring MD: Franko Benites MD Requesting Provider: Medicines: Monitored Anesthesia Care Complications: No immediate complications. Procedure: Pre-Anesthesia Assessment: - The heart rate, respiratory rate, oxygen saturations, blood pressure, adequacy of pulmonary ventilation, and response to care were monitored throughout the procedure. The Colonoscope was introduced through the anus and advanced to the cecum, identified by appendiceal orifice and ileocecal valve. The colonoscopy was performed without difficulty. The patient tolerated the procedure well. The quality of the bowel preparation was excellent. Findings: The perianal and digital rectal examinations were normal. Non-bleeding internal hemorrhoids were found during retroflexion. The hemorrhoids were small and Grade I (internal hemorrhoids that do not prolapse). Multiple small and large-mouthed diverticula were found in the recto-sigmoid colon, sigmoid colon and descending colon. The exam was otherwise without abnormality on direct and retroflexion views. Impression: - Non-bleeding internal hemorrhoids. - Diverticulosis in the recto-sigmoid colon, in the sigmoid colon and in the descending colon. - The examination was otherwise normal on direct and retroflexion views. - No specimens collected. - The exam was otherwise normal to the cecum. Recommendation: - Patient has a contact number available for emergencies. The signs and symptoms of potential delayed complications were discussed with the patient. Return to normal activities tomorrow. Written discharge instructions were provided to the patient. - High fiber diet. - Discharge patient to home. - Continue present medications. - Repeat colonoscopy in 10 years for screening purposes. - Return to referring physician. - The findings and recommendations were discussed with the patient. Procedure Code(s): --- Professional --- 75371, Colonoscopy, flexible; diagnostic, including collection of specimen(s) by brushing or washing, when performed (separate procedure) Diagnosis Code(s): --- Professional --- Z12.11, Encounter for screening for malignant neoplasm of colon K64.0, First degree hemorrhoids K57.30, Diverticulosis of large intestine without perforation or abscess without bleeding CPT copyright 2019 [employer]. All rights reserved. The codes documented in this report are preliminary and upon helper/driver review may be revised to meet current compliance requirements. Adolph Hernandez MD Adolph Hernandez MD 09/19/2020 11:07:46 AM Electronically signed by Adolph Hernandez MD Number of Addenda: 0 Note Initiated On: 09/19/2020 10:50 AM Estimated Blood Loss: Estimated blood loss: none.
[2020-09-19 11:30] VITALS: BP 117/80
== END 2020-09-19 11:56 | disposition home or self-care (01) ==
LOC: M OPP 09:27
PROVIDERS: ATTEND Internal Medicine Gastroenterology
DX: Z12.11 Encounter for screening for malignant neoplasm of colon (principal); K57.30 Diverticulosis of large intestine without perforation or abscess without bleeding; K64.0 First degree hemorrhoids; Z79.82 Long term (current) use of aspirin; Z79.899 Other long term (current) drug therapy; Z87.891 Personal history of nicotine dependence; Z86.718 Personal history of other venous thrombosis and embolism

== ENCOUNTER → 2020-12-22 | Outpatient (CLI) | payer OTHER ==
[~2020-12-22] MED LIST changes: +ISOVUE-300 61% 50ML VIAL As Ordered ONE; -NS 1,000 ML IV ONE; +OMEP40CA4 PO; -OMEP40CA97 PO; +PROHANCE 279.3MG/ML 5ML VIAL As Ordered ONE; +VITMTA PO
--- NOTE | 2020-12-22 10:31 | REP ---
INDICATION: IMPINGEMENT SYNDROME OF LEFT SHOULDER. COMPARISON: None. TECHNIQUE: The injection procedure is performed and dictated separately. Pre and post intra-articular gadolinium enhanced saline injected imaging is acquired. Imaging planes include axial, oblique coronal, oblique sagittal and ABER projection images. T1 and T2-weighted scans are included with and without fat saturation. FINDINGS: Pre-injection images demonstrate subcortical cyst formation in the superolateral humeral head. There is a glenohumeral joint effusion and subacromial subdeltoid bursal effusion. Pre-injection images demonstrate a full-thickness retracted complete tear of the supraspinatus tendon. There is mild skeletal muscle atrophy in the supraspinatus muscle. There is narrowing of the subacromial space with a remodeling change on the undersurface of the acromion process. The infraspinatus tendon appears intact. The subscapularis tendon is attenuated. The biceps tendon is dislocated medially but appears intact. Post injection imaging shows good filling and enhancement of the left glenohumeral articulation. There is diffuse chondromalacia with a 8 mm focal area of nearly full-thickness articular cartilage loss in the glenoid. There is fraying of the anterior glenoid labral cartilage. The superior labral cartilage shows heterogeneous increased T1 and T2 signal intensity consistent with a degenerative tear. ABER images do not show evidence of an anterior labral cartilage tear. Post injection T1 fat sat images show post injection enhancement throughout the subacromial subdeltoid bursal effusion as well as the glenohumeral joint fluid. IMPRESSION: Complete retracted supraspinatus cuff tear with narrowing of the subacromial space remodeling of the undersurface of the acromion process. Pre-injection joint effusion in the glenohumeral articulation. The there is medial dislocation of the biceps tendon. Advanced tendinosis and diffuse thinning of the subscapularis tendon. Glenoid chondromalacia. Mild muscle atrophy is seen in the supraspinatus muscle. There is evidence of a degenerative tear of the superior labral cartilage. <Electronically signed by Sergio Castro > 12/22/20 1026
--- NOTE | 2020-12-22 12:50 | REP ---
INDICATION: IMPINGEMENT SYNDROME OF LEFT SHOULDER COMPARISON: None. TECHNIQUE: The procedure was performed under the direct supervision of Dr. Castro. The benefits and risks including but not limited to pain, infection, bleeding and anaphylaxis were explained to the patient and informed consent was obtained. The left glenohumeral joint space was localized using fluoroscopic guidance. The skin was prepped and draped in a sterile fashion. 1% lidocaine was used as a local anesthetic. Using fluoroscopic guidance a 22 gauge spinal needle was inserted and advanced into the joint. 0.5 ml of Isovue-300 was injected to verify placement. 11 ml of a solution containing 20 ml of sterile saline and 0.15 ml of ProHance was injected into the joint. The needle was removed and the patient was taken to MRI for postprocedural imaging. The patient tolerated the procedure well and there were no immediate complications. Less than 6 seconds of fluoro time was utilized for this procedure. FINDINGS: None IMPRESSION: Fluoro guidance for left shoulder MRI arthrogram injection. <Electronically signed by Justin Nicole > 12/22/20 1158 <Electronically signed by Sergio Castro > 12/22/20 1245
== END ==
LOC: M RADPRO 08:14
PROVIDERS: ATTEND Physician Assistant
DX: R93.7 Abnormal findings on diagnostic imaging of other parts of musculoskeletal system (principal); M75.42 Impingement syndrome of left shoulder
CPT/HCPCS: 23350; 73223; 77002; A9576; Q9967

== ENCOUNTER → 2021-01-17 | Outpatient (CLI) | payer OTHER ==
[~2021-01-17] MED LIST changes: -ISOVUE-300 61% 50ML VIAL As Ordered ONE; -PROHANCE 279.3MG/ML 5ML VIAL As Ordered ONE
[2021-01-17 08:50] LABS: BLOOD UREA NITROGEN 10 MG/DL (7-18); CALCIUM LEVEL 9.7 MG/DL (8.5-10.1); CARBON DIOXIDE LEVEL 29 MEQ/L (21-32); CHLORIDE LEVEL 106 MEQ/L (98-107); CREATININE FOR GFR 0.74 MG/DL (0.70-1.30); GLOMERULAR FILTRATION RATE > 60.0 (>56); GLUCOSE, FASTING 123 MG/DL (70-100); POTASSIUM SERUM 4.3 MEQ/L (3.5-5.1); SODIUM LEVEL 139 MEQ/L (136-145)
--- NOTE | 2021-01-17 22:02 | ECGEPIP ---
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 Sinus tachycardia was noted. Electronically Signed on 01-17-2021 22:02:06 EDT by Romero Rosario
== END ==
LOC: M LAB 08:01
PROVIDERS: ATTEND Orthopaedic Surgery
DX: Z01.812 Encounter for preprocedural laboratory examination (principal); Z01.810 Encounter for preprocedural cardiovascular examination

== ENCOUNTER 2021-02-15 07:00 | Outpatient (RCR) | payer OTHER | END 2021-02-21 | LOC: M PT 07:00 | PROVIDERS: ATTEND Physician Assistant | DX: M75.122 Complete rotator cuff tear or rupture of left shoulder, not specified as traumatic (principal) ==

== ENCOUNTER → 2021-03-07 | Outpatient (CLI) | payer OTHER ==
[2021-03-07 09:40] LABS: HEMATOCRIT 44.2 % (42.0-52.0); HEMOGLOBIN 14.4 g/dl (13.5-17.5); MEAN CORPUSCULAR HEMOGLOBIN 29.4 pg (27.0-33.0); MEAN CORPUSCULAR HGB CONC 32.6 g/dl (32.0-36.5); MEAN CORPUSCULAR VOLUME 90.2 fl (80.0-96.0); PLATELET COUNT, AUTOMATED 227 10^3/uL (150-450); WHITE BLOOD COUNT 13.3 10^3/uL (4.0-10.0)
[2021-03-07 10:12] LABS: ALT/SGPT 56 U/L (12-78); BILIRUBIN,TOTAL 0.3 MG/DL (0.2-1.0); BLOOD UREA NITROGEN 14 MG/DL (7-18); CALCIUM LEVEL 9.6 MG/DL (8.5-10.1); CARBON DIOXIDE LEVEL 29 MEQ/L (21-32); CHLORIDE LEVEL 106 MEQ/L (98-107); CHOLESTEROL LEVEL 202 MG/DL (<200); CREATININE FOR GFR 0.75 MG/DL (0.70-1.30); GLOMERULAR FILTRATION RATE > 60.0 (>56); GLUCOSE, FASTING 139 MG/DL (70-100); HDL CHOLESTEROL 44 MG/DL (>40); LDL CHOLESTEROL 90 MG/DL (<100); NON-HDL-C 158 MG/DL; POTASSIUM SERUM 4.4 MEQ/L (3.5-5.1); SODIUM LEVEL 139 MEQ/L (136-145); TOTAL PROTEIN 7.2 GM/DL (6.4-8.2); TRIGLYCERIDES LEVEL 340 MG/DL (<150)
== END ==
LOC: M LAB 08:54
PROVIDERS: ATTEND Family Medicine
DX: I10 Essential (primary) hypertension (principal)

== ENCOUNTER 2021-03-21 07:33 | Outpatient (RCR) | payer OTHER | END 2021-03-23 | LOC: M PT 07:33 | PROVIDERS: ATTEND Physician Assistant | DX: M75.122 Complete rotator cuff tear or rupture of left shoulder, not specified as traumatic (principal) ==

== ENCOUNTER 2021-04-18 07:39 | Outpatient (RCR) | payer OTHER ==
[~2021-04-18 07:39] MED LIST changes: -TERB250T12; +TERB250T91
== END 2021-04-23 ==
LOC: M PT 07:39
PROVIDERS: ATTEND Physician Assistant
DX: M75.122 Complete rotator cuff tear or rupture of left shoulder, not specified as traumatic (principal)

== ENCOUNTER 2021-05-16 07:31 | Outpatient (RCR) | payer OTHER ==
[~2021-05-16 07:31] MED LIST changes: +OMEP-173; -OMEP-218
== END 2021-05-23 ==
LOC: M PT 07:31
PROVIDERS: ATTEND Physician Assistant
DX: Z47.89 Encounter for other orthopedic aftercare (principal); M75.122 Complete rotator cuff tear or rupture of left shoulder, not specified as traumatic

== ENCOUNTER 2021-06-22 07:45 | Outpatient (RCR) | payer MEDICAID, OTHER ==
[~2021-06-22 07:45] MED LIST changes: -OMEP-173; +OMEP-218
== END 2021-06-23 ==
LOC: M PT 07:45
PROVIDERS: ATTEND Physician Assistant
DX: M75.122 Complete rotator cuff tear or rupture of left shoulder, not specified as traumatic (principal)

== ENCOUNTER 2021-07-20 09:15 | Outpatient (RCR) | payer OTHER ==
[~2021-07-20 09:15] MED LIST changes: +OMEP-173; -OMEP-218
== END 2021-07-24 ==
LOC: M PT 09:15
PROVIDERS: ATTEND Physician Assistant
DX: M75.122 Complete rotator cuff tear or rupture of left shoulder, not specified as traumatic (principal)

== ENCOUNTER 2021-08-03 07:44 | Outpatient (RCR) | payer OTHER | END 2021-08-21 | LOC: M PT 07:44 | PROVIDERS: ATTEND Physician Assistant | DX: Z47.89 Encounter for other orthopedic aftercare (principal); M75.122 Complete rotator cuff tear or rupture of left shoulder, not specified as traumatic ==

== ENCOUNTER → 2021-08-28 | Outpatient (CLI) | payer OTHER ==
[~2021-08-28] MED LIST changes: +ISOVUE-300 61% 50ML VIAL As Ordered ONE; +LIDOCAINE 1% MDV 20ML VIAL As Ordered ONE; +methylPREDNISolone SUSP 40MG/ML 1ML VIAL (DEPO MEDROL) As Ordered ONE
== END ==
LOC: M RADPRO 12:49
PROVIDERS: ATTEND Physician Assistant
DX: M75.22 Bicipital tendinitis, left shoulder (principal)
CPT/HCPCS: 20610; 77002; J1030; Q9967

== ENCOUNTER 2022-01-15 21:28 | Emergency (ER) | payer OTHER ==
[~2022-01-15] VITALS: Ht 167.6 cm; Wt 85.0 kg
[~2022-01-15 21:28] MED LIST changes: -ISOVUE-300 61% 50ML VIAL As Ordered ONE; -LIDOCAINE 1% MDV 20ML VIAL As Ordered ONE; -methylPREDNISolone SUSP 40MG/ML 1ML VIAL (DEPO MEDROL) As Ordered ONE
[2022-01-15] MEDS ORDERED: VALI10TA PO (21:34)
[2022-01-16 02:38] LABS: BASO # 0.1 10^3/uL (0.0-0.2); BASO % 0.5 % (0.0-1.0); EOS # 0.1 10^3/uL (0.0-0.5); EOS % 1.2 % (0.0-3.0); HEMOGLOBIN 15.1 g/dl (13.5-17.5); LYMPH # 2.9 10^3/uL (1.5-5.0); LYMPH % 25.5 % (24.0-44.0); MEAN CORPUSCULAR HEMOGLOBIN 29.5 pg (27.0-33.0); MEAN CORPUSCULAR HGB CONC 34.3 g/dl (32.0-36.5); MEAN CORPUSCULAR VOLUME 86.1 fl (80.0-96.0); MONO # 0.8 10^3/uL (0.0-0.8); MONO % 7.4 % (2.0-8.0); NEUTROPHILS # 7.4 10^3/uL (1.5-8.5); PLATELET COUNT, AUTOMATED 263 10^3/uL (150-450); RED BLOOD COUNT 5.11 10^6/uL (4.30-6.10); WHITE BLOOD COUNT 11.4 10^3/uL (4.0-10.0)
[2022-01-16 03:39] LABS: BLOOD UREA NITROGEN 10 MG/DL (7-18); GLUCOSE, FASTING 137 MG/DL (70-100)
[2022-01-16 03:40] LABS: ALBUMIN 4.5 GM/DL (3.2-5.2); ALT/SGPT 41 IU/L (0-32); BILIRUBIN,DIRECT 0.1 MG/DL (0.0-0.2); BILIRUBIN,TOTAL 0.7 MG/DL (0.2-1.0); CALCIUM LEVEL 9.7 MG/DL (8.5-10.1); CARBON DIOXIDE LEVEL 25 mmol/L (20-29); CHLORIDE LEVEL 106 MEQ/L (98-107); CREATININE FOR GFR 0.77 MG/DL (0.70-1.30); GLOMERULAR FILTRATION RATE > 60.0 (>56); LIPASE 90 U/L (73-393); POTASSIUM SERUM 3.8 MEQ/L (3.5-5.1); SODIUM LEVEL 141 MEQ/L (136-145); TOTAL PROTEIN 7.8 GM/DL (6.4-8.2)
[2022-01-16 03:41] LABS: CK-MB VALUE MASS 4.8 NG/ML (<3.6); MB/CK RELATIVE INDEX 1.09 (< OR =4)
[2022-01-16] MEDS ORDERED: MECLIZINE 25 MG TABLET PO ONE (04:15)
[2022-01-16] MEDS ORDERED: MECL1TAB31 PO (05:03)
[2022-01-16 05:12] VITALS: BP 132/90
== END 2022-01-16 05:18 | disposition home or self-care (01) ==
LOC: M ED 21:28
DX: H81.10 Benign paroxysmal vertigo, unspecified ear (principal); R94.6 Abnormal results of thyroid function studies; I10 Essential (primary) hypertension; E78.5 Hyperlipidemia, unspecified; F41.9 Anxiety disorder, unspecified; K21.9 Gastro-esophageal reflux disease without esophagitis; Z79.899 Other long term (current) drug therapy; Z79.82 Long term (current) use of aspirin

== ENCOUNTER → 2022-02-21 | Outpatient (CLI) | payer OTHER ==
[~2022-02-21] MED LIST changes: +MECL1TAB31 PO; +VALI10TA PO
== END ==
LOC: M WUC 08:50
PROVIDERS: ATTEND Physician Assistant
DX: M25.571 Pain in right ankle and joints of right foot (principal); R22.41 Localized swelling, mass and lump, right lower limb

== ENCOUNTER → 2022-03-05 | Outpatient (CLI) | payer OTHER ==
[2022-03-05 07:31] LABS: HEMATOCRIT 39.1 % (42.0-52.0); HEMOGLOBIN 13.2 g/dl (13.5-17.5); MEAN CORPUSCULAR HGB CONC 33.8 g/dl (32.0-36.5); MEAN CORPUSCULAR VOLUME 88.9 fl (80.0-96.0); PLATELET COUNT, AUTOMATED 251 10^3/uL (150-450); WHITE BLOOD COUNT 15.6 10^3/uL (4.0-10.0)
[2022-03-05 08:07] LABS: ALBUMIN 3.8 GM/DL (3.2-5.2); ALT/SGPT 32 U/L (12-78); ATYPICAL LYMPH 3 % (0-5); BILIRUBIN,TOTAL 0.4 MG/DL (0.2-1.0); BLOOD UREA NITROGEN 16 MG/DL (7-18); CALCIUM LEVEL 9.2 MG/DL (8.5-10.1); CARBON DIOXIDE LEVEL 27 MEQ/L (21-32); CHLORIDE LEVEL 104 MEQ/L (98-107); CREATININE FOR GFR 0.76 MG/DL (0.70-1.30); EOSINOPHILS 2 % (0-3); FREE T3 3.1 PG/ML (2.2-4.0); FREE T4 0.73 NG/DL (0.76-1.46); GLOMERULAR FILTRATION RATE > 60.0 (>56); GLUCOSE, FASTING 171 MG/DL (70-100); LYMPHOCYTES 24 % (16-44); MONOCYTES 6 % (0-5); NEUTROPHILS 64 % (28-66); POTASSIUM SERUM 3.4 MEQ/L (3.5-5.1); PROSTATIC SPECIFIC AG MONITOR 1.39 NG/ML (< 4.00); SODIUM LEVEL 137 MEQ/L (136-145); TOTAL PROTEIN 6.6 GM/DL (6.4-8.2)
[2022-03-05 08:12] LABS: MICROCYTOSIS 1+
[2022-03-05 08:15] LABS: SPHEROCYTES 1+
[2022-03-05 08:16] LABS: PLATELET ESTIMATE NORMAL (NORMAL)
[2022-03-05 08:17] LABS: HEMOGLOBIN A1c 6.7 %
[2022-03-05 08:24] LABS: BASO # 0.1 10^3/uL (0.0-0.2); BASO % 0.5 % (0.0-1.0); EOS # 0.2 10^3/uL (0.0-0.5); EOS % 1.5 % (0.0-3.0); LYMPH # 4.1 10^3/uL (1.5-5.0); MONO # 1.3 10^3/uL (0.0-0.8); NEUTROPHILS # 9.9 10^3/uL (1.5-8.5); NEUTROPHILS % 63.7 % (36.0-66.0)
== END ==
LOC: M LAB 06:15
PROVIDERS: ATTEND Family Medicine
DX: Z12.5 Encounter for screening for malignant neoplasm of prostate (principal); I10 Essential (primary) hypertension; D72.829 Elevated white blood cell count, unspecified; E07.9 Disorder of thyroid, unspecified; R73.01 Impaired fasting glucose

== ENCOUNTER → 2022-03-06 | Outpatient (CLI) | payer OTHER | LOC: M WUC 08:30 | PROVIDERS: ATTEND Physician Assistant Medical | DX: M77.31 Calcaneal spur, right foot (principal); M25.571 Pain in right ankle and joints of right foot; S93.401A Sprain of unspecified ligament of right ankle, initial encounter; X58.XXXA Exposure to other specified factors, initial encounter; Y92.9 Unspecified place or not applicable; Y93.9 Activity, unspecified; Y99.9 Unspecified external cause status ==

== ENCOUNTER 2022-05-02 05:51 | Emergency (ER) | payer OTHER ==
[~2022-05-02] VITALS: Ht 167.6 cm; Wt 86.4 kg
[2022-05-02] MEDS ORDERED: predniSONE 20 MG TAB PO ONE (08:55)
[2022-05-02] MEDS ORDERED: methocarbamoL 500 MG TAB PO ONE (08:55)
[2022-05-02] MEDS ORDERED: METH-1164 PO (09:28)
[2022-05-02 09:42] VITALS: BP 132/77
== END 2022-05-02 09:43 | disposition home or self-care (01) ==
LOC: M ED 05:51
DX: S46.012A Strain of muscle(s) and tendon(s) of the rotator cuff of left shoulder, initial encounter (principal); Y99.0 Civilian activity done for income or pay; Z79.82 Long term (current) use of aspirin; Z79.899 Other long term (current) drug therapy
CPT/HCPCS: 73030; 99284; J7512

== ENCOUNTER → 2022-07-03 | Outpatient (CLI) | payer OTHER ==
[~2022-07-03] MED LIST changes: +METH-1164 PO
[2022-07-03 08:41] LABS: BASO # 0.1 10^3/uL (0.0-0.2); BASO % 0.4 % (0.0-1.0); EOS # 0.2 10^3/uL (0.0-0.5); EOS % 1.7 % (0.0-3.0); HEMATOCRIT 42.3 % (42.0-52.0); HEMOGLOBIN 13.9 g/dl (13.5-17.5); LYMPH # 3.2 10^3/uL (1.5-5.0); MEAN CORPUSCULAR HEMOGLOBIN 29.1 pg (27.0-33.0); MEAN CORPUSCULAR HGB CONC 32.9 g/dl (32.0-36.5); MEAN CORPUSCULAR VOLUME 88.7 fl (80.0-96.0); MONO # 0.9 10^3/uL (0.0-0.8); MONO % 7.1 % (2.0-8.0); NEUTROPHILS # 8.7 10^3/uL (1.5-8.5); NEUTROPHILS % 66.5 % (36.0-66.0); PLATELET COUNT, AUTOMATED 227 10^3/uL (150-450); RED BLOOD COUNT 4.77 10^6/uL (4.30-6.10); WHITE BLOOD COUNT 13.1 10^3/uL (4.0-10.0)
[2022-07-03 08:44] LABS: HEMOGLOBIN A1c 6.4 % (4.0-6.0)
[2022-07-03 08:58] LABS: ALBUMIN 4.2 G/DL (3.2-5.2); ALKALINE PHOSPHATASE 117 U/L (46-116); ALT/SGPT 47 U/L (7.0-40); AST/SGOT 27 U/L (<34); BILIRUBIN,TOTAL 0.4 MG/DL (0.3-1.2); BLOOD UREA NITROGEN 10 MG/DL (9-23); CALCIUM LEVEL 9.7 MG/DL (8.5-10.1); CARBON DIOXIDE LEVEL 27 MMOL/L (20-31); CHLORIDE LEVEL 103 MMOL/L (98-107); GLOMERULAR FILTRATION RATE > 60.0 (>56); GLUCOSE, FASTING 157 MG/DL (60-100); POTASSIUM SERUM 4.1 MMOL/L (3.5-5.1); SODIUM LEVEL 138 MMOL/L (136-145); TOTAL PROTEIN 7.3 G/DL (5.7-8.2)
== END ==
LOC: M LAB 07:52
PROVIDERS: ATTEND Family Medicine
DX: D72.829 Elevated white blood cell count, unspecified (principal); Z12.5 Encounter for screening for malignant neoplasm of prostate; I10 Essential (primary) hypertension; R73.01 Impaired fasting glucose

== ENCOUNTER → 2022-08-01 | Outpatient (CLI) | payer OTHER ==
[~2022-08-01] MED LIST changes: +PROHANCE 279.3MG/ML 15ML VIAL As Ordered ONE; +PROHANCE 279.3MG/ML 5ML VIAL As Ordered ONE
== END ==
LOC: M RAD 14:12
PROVIDERS: ATTEND Family Medicine
DX: R93.3 Abnormal findings on diagnostic imaging of other parts of digestive tract (principal); R16.0 Hepatomegaly, not elsewhere classified; N28.1 Cyst of kidney, acquired
CPT/HCPCS: 74183; A9576

== ENCOUNTER → 2022-08-30 | Outpatient (CLI) | payer OTHER ==
[~2022-08-30] MED LIST changes: -PROHANCE 279.3MG/ML 15ML VIAL As Ordered ONE; -PROHANCE 279.3MG/ML 5ML VIAL As Ordered ONE
[2022-08-30 06:58] LABS: BASO # 0.1 10^3/uL (0.0-0.2); BASO % 0.6 % (0.0-1.0); EOS # 0.2 10^3/uL (0.0-0.5); HEMATOCRIT 41.7 % (42.0-52.0); HEMOGLOBIN 13.6 g/dl (13.5-17.5); LYMPH # 2.9 10^3/uL (1.5-5.0); LYMPH % 18.6 % (24.0-44.0); MEAN CORPUSCULAR HEMOGLOBIN 28.6 pg (27.0-33.0); MEAN CORPUSCULAR HGB CONC 32.6 g/dl (32.0-36.5); MEAN CORPUSCULAR VOLUME 87.8 fl (80.0-96.0); MONO % 6.6 % (2.0-8.0); NEUTROPHILS # 11.5 10^3/uL (1.5-8.5); NEUTROPHILS % 72.8 % (36.0-66.0); PLATELET COUNT, AUTOMATED 329 10^3/uL (150-450); RED BLOOD COUNT 4.75 10^6/uL (4.30-6.10); WHITE BLOOD COUNT 15.7 10^3/uL (4.0-10.0)
[2022-08-30 07:31] LABS: HEMOGLOBIN A1c 6.5 % (4.0-6.0)
[2022-08-30 07:33] LABS: ALBUMIN 3.7 G/DL (3.2-5.2); ALKALINE PHOSPHATASE 123 U/L (46-116); ALT/SGPT 53 U/L (7.0-40); AST/SGOT 14 U/L (<34); BILIRUBIN,TOTAL 0.3 MG/DL (0.3-1.2); BLOOD UREA NITROGEN 15 MG/DL (9-23); CALCIUM LEVEL 9.5 MG/DL (8.5-10.1); CARBON DIOXIDE LEVEL 28 MMOL/L (20-31); CHLORIDE LEVEL 105 MMOL/L (98-107); CHOLESTEROL LEVEL 153 MG/DL (<200); CHOLESTEROL RISK RATIO 4.29 (<5); CREATININE FOR GFR 0.53 MG/DL (0.70-1.30); FREE T4 1.05 NG/DL (0.89-1.76); GLOMERULAR FILTRATION RATE > 60.0 (>56); GLUCOSE, FASTING 132 MG/DL (60-100); HDL CHOLESTEROL 35.6 MG/DL (>40); NON-HDL-C 117.4 MG/DL; POTASSIUM SERUM 3.9 MMOL/L (3.5-5.1); SODIUM LEVEL 140 MMOL/L (136-145); THYROID STIMULATING HORMONE 2.295 uIU/ML (0.55-4.78); TOTAL PROTEIN 6.5 G/DL (5.7-8.2); TRIGLYCERIDES LEVEL 387 MG/DL (<150)
== END ==
LOC: M LAB 06:12
PROVIDERS: ATTEND Physician Assistant
DX: I10 Essential (primary) hypertension (principal); F41.9 Anxiety disorder, unspecified; F32.A Depression, unspecified; R53.83 Other fatigue; E78.5 Hyperlipidemia, unspecified; R73.09 Other abnormal glucose

== ENCOUNTER → 2022-08-30 | Outpatient (CLI) | payer OTHER ==
[2022-08-30 06:57] LABS: HEMOGLOBIN 13.7 g/dl (13.5-17.5); MEAN CORPUSCULAR HEMOGLOBIN 29.5 pg (27.0-33.0); MEAN CORPUSCULAR HGB CONC 33.4 g/dl (32.0-36.5); MEAN CORPUSCULAR VOLUME 88.2 fl (80.0-96.0); PLATELET COUNT, AUTOMATED 334 10^3/uL (150-450); RED BLOOD COUNT 4.65 10^6/uL (4.30-6.10)
== END ==
LOC: M LAB 06:14
PROVIDERS: ATTEND Surgery
DX: K57.30 Diverticulosis of large intestine without perforation or abscess without bleeding (principal)

== ENCOUNTER → 2022-09-12 | Outpatient (CLI) | payer OTHER ==
[~2022-09-12] MED LIST changes: +GASTROGRAFIN SOLUTION 30ML As Ordered ONE; +ISOVUE-370 76% 100ML VIAL As Ordered ONE
== END ==
LOC: M RAD 12:01
PROVIDERS: ATTEND Physician Assistant
DX: K57.32 Diverticulitis of large intestine without perforation or abscess without bleeding (principal); K57.30 Diverticulosis of large intestine without perforation or abscess without bleeding; K83.1 Obstruction of bile duct; R16.1 Splenomegaly, not elsewhere classified; N28.1 Cyst of kidney, acquired
CPT/HCPCS: 74177; Q9963; Q9967

== ENCOUNTER 2022-12-06 07:53 | Day surgery (SDC) | payer OTHER ==
[~2022-12-06] VITALS: Ht 167.6 cm; Wt 75.6 kg
[~2022-12-06 07:53] MED LIST changes: -GASTROGRAFIN SOLUTION 30ML As Ordered ONE; -ISOVUE-370 76% 100ML VIAL As Ordered ONE; +LEXA1TAB PO; +LOSA50TA28 PO; +PANT40TA29 PO
[2022-12-06] MEDS: NS 1,000 ML IV ONE (08:11)
[2022-12-06] MEDS ORDERED: propofoL 500 MG/50 ML VIAL As Ordered ONE (08:16)
[2022-12-06] MEDS ORDERED: LIDOCAINE 2% 100MG/5ML SDV (FOR ANES.) As Ordered ONE (08:18)
[2022-12-06] MEDS ORDERED: fentaNYL 100 MCG/2 ML INJECTION As Ordered ONE (08:36)
[2022-12-06] MEDS ORDERED: ePHEDrine SULFATE 25 MG/5 ML(5MG/ML) SYRINGE As Ordered ONE (09:32)
[2022-12-06 09:54] VITALS: BP 140/79; O2SAT 100
== END 2022-12-06 10:05 | disposition home or self-care (01) ==
LOC: M OPP 07:53
PROVIDERS: ATTEND Surgery
DX: K57.30 Diverticulosis of large intestine without perforation or abscess without bleeding (principal); K21.9 Gastro-esophageal reflux disease without esophagitis; K31.89 Other diseases of stomach and duodenum; I10 Essential (primary) hypertension; F41.9 Anxiety disorder, unspecified; F32.A Depression, unspecified; G62.9 Polyneuropathy, unspecified; B19.10 Unspecified viral hepatitis B without hepatic coma; E78.5 Hyperlipidemia, unspecified; Z87.891 Personal history of nicotine dependence; Z79.82 Long term (current) use of aspirin; Z79.899 Other long term (current) drug therapy
CPT/HCPCS: 43239; 45378; 88305; J3010

== ENCOUNTER → 2022-12-13 | Outpatient (REF) | payer OTHER | LOC: M SFHCPLAZ 08:52 | PROVIDERS: ATTEND Family Medicine | DX: Z53.9 Procedure and treatment not carried out, unspecified reason (principal) ==

== ENCOUNTER → 2022-12-31 | Outpatient (CLI) | payer OTHER ==
[2022-12-31 11:46] LABS: BASO # 0.1 10^3/uL (0.0-0.2); BASO % 0.7 % (0.0-1.0); EOS # 0.3 10^3/uL (0.0-0.5); EOS % 2.1 % (0.0-3.0); HEMATOCRIT 43.6 % (42.0-52.0); HEMOGLOBIN 14.5 g/dl (13.5-17.5); LYMPH # 3.3 10^3/uL (1.5-5.0); MEAN CORPUSCULAR HGB CONC 33.3 g/dl (32.0-36.5); MEAN CORPUSCULAR VOLUME 90.1 fl (80.0-96.0); MONO # 1.1 10^3/uL (0.0-0.8); MONO % 9.2 % (2.0-8.0); NEUTROPHILS # 6.9 10^3/uL (1.5-8.5); NEUTROPHILS % 59.5 % (36.0-66.0); PLATELET COUNT, AUTOMATED 254 10^3/uL (150-450); RED BLOOD COUNT 4.84 10^6/uL (4.30-6.10); WHITE BLOOD COUNT 11.7 10^3/uL (4.0-10.0)
[2022-12-31 11:58] LABS: HEMOGLOBIN A1c 5.7 % (4.0-6.0)
[2022-12-31 12:10] LABS: ALBUMIN 4.1 G/DL (3.2-5.2); ALKALINE PHOSPHATASE 89 U/L (46-116); ALT/SGPT 33 U/L (7.0-40); AST/SGOT 17 U/L (<34); BILIRUBIN,TOTAL 0.4 MG/DL (0.3-1.2); BLOOD UREA NITROGEN 16 MG/DL (9-23); CALCIUM LEVEL 9.4 MG/DL (8.5-10.1); CARBON DIOXIDE LEVEL 28 MMOL/L (20-31); CHLORIDE LEVEL 106 MMOL/L (98-107); CHOLESTEROL LEVEL 152 MG/DL (<200); CHOLESTEROL RISK RATIO 3.56 (<5); CREATININE FOR GFR 0.64 MG/DL (0.70-1.30); GLOMERULAR FILTRATION RATE > 60.0 (>56); GLUCOSE, FASTING 142 MG/DL (60-100); HDL CHOLESTEROL 42.6 MG/DL (>40); NON-HDL-C 109.4 MG/DL; POTASSIUM SERUM 4.2 MMOL/L (3.5-5.1); SODIUM LEVEL 141 MMOL/L (136-145); TOTAL PROTEIN 6.6 G/DL (5.7-8.2); TRIGLYCERIDES LEVEL 332 MG/DL (<150)
[2022-12-31 12:11] LABS: FREE T4 0.98 NG/DL (0.89-1.76)
== END ==
LOC: M PLALAB 08:33
PROVIDERS: ATTEND Family Medicine
DX: I95.1 Orthostatic hypotension (principal); R79.89 Other specified abnormal findings of blood chemistry; E78.1 Pure hyperglyceridemia; Z12.5 Encounter for screening for malignant neoplasm of prostate

== ENCOUNTER → 2023-01-18 | Outpatient (CLI) | payer OTHER | LOC: M RAD 06:01 | PROVIDERS: ATTEND Family Medicine | DX: Z12.2 Encounter for screening for malignant neoplasm of respiratory organs (principal); F17.211 Nicotine dependence, cigarettes, in remission ==

== ENCOUNTER 2023-01-26 19:17 | Emergency (ER) | payer OTHER ==
[~2023-01-26] VITALS: Ht 167.6 cm; Wt 76.9 kg
[2023-01-26] MEDS ORDERED: HYDR-3363 (19:28)
[2023-01-26] MEDS ORDERED: DIAZ5TAB (19:28)
[2023-01-26 21:25] LABS: BASO # 0.1 10^3/uL (0.0-0.2); BASO % 0.5 % (0.0-1.0); EOS # 0.1 10^3/uL (0.0-0.5); EOS % 0.8 % (0.0-3.0); HEMATOCRIT 37.2 % (42.0-52.0); HEMOGLOBIN 12.8 g/dl (13.5-17.5); LYMPH # 2.3 10^3/uL (1.5-5.0); LYMPH % 25.3 % (24.0-44.0); MEAN CORPUSCULAR HGB CONC 34.4 g/dl (32.0-36.5); MEAN CORPUSCULAR VOLUME 87.1 fl (80.0-96.0); MONO # 0.5 10^3/uL (0.0-0.8); MONO % 5.5 % (2.0-8.0); NEUTROPHILS # 6.3 10^3/uL (1.5-8.5); NEUTROPHILS % 67.6 % (36.0-66.0); PLATELET COUNT, AUTOMATED 271 10^3/uL (150-450); RED BLOOD COUNT 4.27 10^6/uL (4.30-6.10); WHITE BLOOD COUNT 9.3 10^3/uL (4.0-10.0)
[2023-01-26 22:18] LABS: CK-MB VALUE MASS 6.2 NG/ML (<3.6)
[2023-01-26 22:22] LABS: FREE T4 0.95 NG/DL (0.89-1.76)
[2023-01-26 22:32] LABS: CPK CREATINE PHOSPHOKINASE 425 U/L (46-171); MB/CK RELATIVE INDEX 1.45 (< OR =4)
[2023-01-26 22:40] VITALS: TEMP 98.8
[2023-01-26 23:06] LABS: HEMOGLOBIN A1c 5.6 % (4.0-6.0)
[2023-01-27 00:15] VITALS: BP 125/74
[2023-01-27] MEDS ORDERED: HOLTER MONITOR XX (00:16)
[2023-01-27 00:17] VITALS: O2SAT 95
== END 2023-01-27 00:34 | disposition home or self-care (01) ==
LOC: M ED 19:17
DX: R42 Dizziness and giddiness (principal); I10 Essential (primary) hypertension; G47.00 Insomnia, unspecified; K57.92 Diverticulitis of intestine, part unspecified, without perforation or abscess without bleeding; Z86.73 Personal history of transient ischemic attack (TIA), and cerebral infarction without residual deficits; Z79.82 Long term (current) use of aspirin; Z79.899 Other long term (current) drug therapy

== ENCOUNTER → 2023-01-28 | Outpatient (CLI) | payer OTHER ==
[~2023-01-28] MED LIST changes: +DIAZ5TAB; +HOLTER MONITOR XX; +HYDR-3363
[2023-01-28 10:53] LABS: APPEARANCE, URINE HAZY (CLEAR); BACTERIA, URINE AUTO NEGATIVE (NEGATIVE); BILIRUBIN, URINE AUTO NEGATIVE (NEGATIVE); BLOOD, URINE BLOOD NEGATIVE (NEGATIVE); CALCIUM OXALATE CRYSTALS SMALL; COLOR, URINE AMBER (YELLOW); GLUCOSE, URINE (UA) AUTO NEGATIVE (NEGATIVE); KETONE, URINE AUTO TRACE mg/dL (NEGATIVE); LEUKOCYTE ESTERASE, URINE AUTO NEGATIVE (NEGATIVE); MUCUS, URINE LARGE (NEGATIVE); NITRITE, URINE AUTO NEGATIVE (NEGATIVE); PROTEIN, URINE AUTO NEGATIVE (NEGATIVE); RBC, URINE AUTO 0 /HPF (0-3); SPECIFIC GRAVITY URINE AUTO 1.026 (1.002-1.035); SQUAMOUS EPITHELIAL CELL UR AU 0 /HPF (0-6); WBC, URINE AUTO 1 /HPF (0-3)
[2023-01-28 11:02] LABS: BASO # 0.1 10^3/uL (0.0-0.2); BASO % 0.6 % (0.0-1.0); EOS # 0.1 10^3/uL (0.0-0.5); EOS % 0.9 % (0.0-3.0); HEMATOCRIT 43.4 % (42.0-52.0); HEMOGLOBIN 14.1 g/dl (13.5-17.5); LYMPH # 3.4 10^3/uL (1.5-5.0); LYMPH % 31.8 % (24.0-44.0); MEAN CORPUSCULAR HEMOGLOBIN 29.2 pg (27.0-33.0); MEAN CORPUSCULAR HGB CONC 32.5 g/dl (32.0-36.5); MEAN CORPUSCULAR VOLUME 89.9 fl (80.0-96.0); MONO # 0.8 10^3/uL (0.0-0.8); MONO % 7.3 % (2.0-8.0); NEUTROPHILS # 6.3 10^3/uL (1.5-8.5); NEUTROPHILS % 59.1 % (36.0-66.0); PLATELET COUNT, AUTOMATED 292 10^3/uL (150-450); RED BLOOD COUNT 4.83 10^6/uL (4.30-6.10); WHITE BLOOD COUNT 10.6 10^3/uL (4.0-10.0)
[2023-01-28 11:10] LABS: ERYTHROCYTE SEDIMENTATION RATE 20 mm/hr (0-20)
[2023-01-28 11:22] LABS: ALKALINE PHOSPHATASE 104 U/L (46-116); ALT/SGPT 54 U/L (7.0-40); AST/SGOT 12 U/L (<34); BILIRUBIN,TOTAL 0.6 MG/DL (0.3-1.2); BLOOD UREA NITROGEN 10 MG/DL (9-23); CARBON DIOXIDE LEVEL 24 MMOL/L (20-31); CHLORIDE LEVEL 105 MMOL/L (98-107); CREATININE FOR GFR 0.65 MG/DL (0.70-1.30); FERRITIN 201.4 NG/ML (10.5-307.3); GLOMERULAR FILTRATION RATE > 60.0 (>56); GLUCOSE, FASTING 120 MG/DL (60-100); IRON (FE) 73 UG/DL (65-175); POTASSIUM SERUM 4.2 MMOL/L (3.5-5.1); SODIUM LEVEL 141 MMOL/L (136-145); TOTAL PROTEIN 6.8 G/DL (5.7-8.2)
== END ==
LOC: M PLALAB 08:39
PROVIDERS: ATTEND Family Medicine
DX: R68.83 Chills (without fever) (principal); R71.0 Precipitous drop in hematocrit; R42 Dizziness and giddiness

== ENCOUNTER → 2023-01-29 | Outpatient (CLI) | payer OTHER ==
[2023-01-29 11:43] LABS: C REACTIVE PROTEIN QUANTITATIV < 0.40 MG/DL (<1.0)
[2023-01-29 11:45] LABS: IRON (FE) 39 UG/DL (65-175)
[2023-01-29 11:49] LABS: FERRITIN 149.8 NG/ML (10.5-307.3)
== END ==
LOC: M PLALAB 07:05
PROVIDERS: ATTEND Physician Assistant Medical
DX: R71.0 Precipitous drop in hematocrit (principal); R68.83 Chills (without fever)

== ENCOUNTER → 2023-07-11 | Outpatient (CLI) | payer OTHER ==
[~2023-07-11] MED LIST changes: +DIAZ-654 PO; +MECL-209 PO; -MECL1TAB31 PO; -VALI10TA PO
[2023-07-11 07:37] LABS: BASO # 0.1 10^3/uL (0.0-0.2); BASO % 0.7 % (0.0-1.0); EOS # 0.2 10^3/uL (0.0-0.5); EOS % 2.6 % (0.0-3.0); HEMATOCRIT 44.1 % (42.0-52.0); HEMOGLOBIN 14.8 g/dl (13.5-17.5); LYMPH # 2.8 10^3/uL (1.5-5.0); LYMPH % 32.1 % (24.0-44.0); MEAN CORPUSCULAR HEMOGLOBIN 30.3 pg (27.0-33.0); MEAN CORPUSCULAR HGB CONC 33.6 g/dl (32.0-36.5); MEAN CORPUSCULAR VOLUME 90.2 fl (80.0-96.0); MONO # 0.9 10^3/uL (0.0-0.8); MONO % 10.2 % (2.0-8.0); NEUTROPHILS # 4.6 10^3/uL (1.5-8.5); NEUTROPHILS % 53.7 % (36.0-66.0); PLATELET COUNT, AUTOMATED 242 10^3/uL (150-450); RED BLOOD COUNT 4.89 10^6/uL (4.30-6.10); WHITE BLOOD COUNT 8.6 10^3/uL (4.0-10.0)
[2023-07-11 08:02] LABS: ALBUMIN 3.7 G/DL (3.2-5.2); ALKALINE PHOSPHATASE 102 U/L (46-116); ALT/SGPT 55 U/L (7.0-40); AST/SGOT 25 U/L (<34); BILIRUBIN,TOTAL 0.2 MG/DL (0.3-1.2); BLOOD UREA NITROGEN 13 MG/DL (9-23); CALCIUM LEVEL 9.1 MG/DL (8.5-10.1); CARBON DIOXIDE LEVEL 27 MMOL/L (20-31); CHLORIDE LEVEL 105 MMOL/L (98-107); CREATININE FOR GFR 0.69 MG/DL (0.70-1.30); GLOMERULAR FILTRATION RATE > 60.0 (>56); GLUCOSE, FASTING 178 MG/DL (60-100); POTASSIUM SERUM 4.4 MMOL/L (3.5-5.1); SODIUM LEVEL 137 MMOL/L (136-145); TOTAL PROTEIN 6.5 G/DL (5.7-8.2)
[2023-07-11 08:04] LABS: THYROID STIMULATING HORMONE 1.772 uIU/ML (0.55-4.78)
[2023-07-11 10:27] LABS: HEMOGLOBIN A1c 6.1 % (4.0-6.0)
== END ==
LOC: M EKG 06:24
PROVIDERS: ATTEND Family Medicine
DX: Z01.810 Encounter for preprocedural cardiovascular examination (principal); R73.9 Hyperglycemia, unspecified; R42 Dizziness and giddiness

== ENCOUNTER → 2023-07-15 | Outpatient (CLI) | payer OTHER | LOC: M PLALAB 07:33 | PROVIDERS: ATTEND Family Medicine | DX: R73.9 Hyperglycemia, unspecified (principal) ==

== ENCOUNTER → 2024-01-17 | Outpatient (CLI) | payer OTHER ==
[~2024-01-17] MED LIST changes: -ASPI-161 PO; +ASPI-615 PO; +BUPR-597; +BUPR-597 PO; -BUPR300T92; -BUPR300T92 PO
== END ==
LOC: M PLAIMG 10:14
PROVIDERS: ATTEND Nurse Practitioner Family
DX: M25.562 Pain in left knee (principal)

== ENCOUNTER → 2024-01-23 | Outpatient (CLI) | payer OTHER ==
[~2024-01-23] MED LIST changes: +AMLO1TAB24 PO; +IBUP-1022 PO; +PRED20TA PO
== END ==
LOC: M RAD 08:34
PROVIDERS: ATTEND Family Medicine
DX: Z12.2 Encounter for screening for malignant neoplasm of respiratory organs (principal); F17.211 Nicotine dependence, cigarettes, in remission; Z53.9 Procedure and treatment not carried out, unspecified reason

== ENCOUNTER 2024-02-01 20:52 | Emergency (ER) | payer OTHER ==
[~2024-02-01] VITALS: Ht 167.6 cm; Wt 83.3 kg
[~2024-02-01 20:52] MED LIST changes: -AMLO1TAB24 PO; -IBUP-1022 PO; -PRED20TA PO
[2024-02-01 20:53] VITALS: TEMP 97; O2SAT 96
[2024-02-01 20:57] VITALS: BP 128/88
[2024-02-01] MEDS ORDERED: PRED20TA PO (21:44)
[2024-02-01] MEDS ORDERED: AMLO1TAB24 PO (21:44)
[2024-02-01 21:54] LABS: BASO % 0.1 % (0.0-1.0); HEMATOCRIT 43.5 % (42.0-52.0); HEMOGLOBIN 14.6 g/dl (13.5-17.5); LYMPH # 2.3 10^3/uL (1.5-5.0); LYMPH % 14.6 % (24.0-44.0); MEAN CORPUSCULAR HGB CONC 33.6 g/dl (32.0-36.5); MEAN CORPUSCULAR VOLUME 89.3 fl (80.0-96.0); MONO # 1.2 10^3/uL (0.0-0.8); MONO % 7.8 % (2.0-8.0); NEUTROPHILS # 12.1 10^3/uL (1.5-8.5); NEUTROPHILS % 77.1 % (36.0-66.0); PLATELET COUNT, AUTOMATED 313 10^3/uL (150-450); RED BLOOD COUNT 4.87 10^6/uL (4.30-6.10); WHITE BLOOD COUNT 15.6 10^3/uL (4.0-10.0)
[2024-02-01] MEDS: KETOROLAC 30 MG/ML 1ML VIAL IV ONE (22:05)
[2024-02-01 22:30] LABS: BLOOD UREA NITROGEN 18 MG/DL (9-23); CALCIUM LEVEL 9.7 MG/DL (8.5-10.1); CARBON DIOXIDE LEVEL 24 MMOL/L (20-31); CHLORIDE LEVEL 106 MMOL/L (98-107); CK-MB VALUE MASS 4.3 NG/ML (<3.6); CREATININE FOR GFR 0.75 MG/DL (0.70-1.30); GLOMERULAR FILTRATION RATE > 60.0 (>56); GLUCOSE, FASTING 209 MG/DL (60-100); POTASSIUM SERUM 4.5 MMOL/L (3.5-5.1); SODIUM LEVEL 138 MMOL/L (136-145)
[2024-02-01 22:42] LABS: CPK CREATINE PHOSPHOKINASE 1728 U/L (46-171); MB/CK RELATIVE INDEX 0.24 (< OR =4)
[2024-02-02] MEDS ORDERED: METH-1164 PO (00:37)
[2024-02-02] MEDS ORDERED: IBUP-1022 PO (00:37)
[2024-02-02] MEDS: methocarbamoL 500 MG TAB PO ONE (01:00)
== END 2024-02-02 01:24 | disposition home or self-care (01) ==
LOC: M ED 20:52
DX: S23.41XA Sprain of ribs, initial encounter (principal); X58.XXXA Exposure to other specified factors, initial encounter; Y92.9 Unspecified place or not applicable; Y93.89 Activity, other specified; Y99.9 Unspecified external cause status; I10 Essential (primary) hypertension; Z79.899 Other long term (current) drug therapy
CPT/HCPCS: 71046; 71100; 80048; 82550; 82553; 84484; 85025; 96374; 99284; J1885

== ENCOUNTER → 2024-02-10 | Outpatient (CLI) | payer OTHER ==
[~2024-02-10] MED LIST changes: +AMLO1TAB24 PO; +IBUP-1022 PO; +PRED20TA PO
== END ==
LOC: M RAD 09:42
PROVIDERS: ATTEND Physician Assistant Medical
DX: R16.0 Hepatomegaly, not elsewhere classified (principal); N28.1 Cyst of kidney, acquired; M94.0 Chondrocostal junction syndrome [Tietze]; R10.11 Right upper quadrant pain; T14.8XXA Other injury of unspecified body region, initial encounter

== ENCOUNTER → 2024-02-12 | Outpatient (CLI) | payer OTHER ==
[2024-02-12 07:51] LABS: BASO # 0.1 10^3/uL (0.0-0.2); BASO % 0.8 % (0.0-1.0); EOS # 0.3 10^3/uL (0.0-0.5); EOS % 2.7 % (0.0-3.0); HEMATOCRIT 37.3 % (42.0-52.0); HEMOGLOBIN 12.3 g/dl (13.5-17.5); MEAN CORPUSCULAR HEMOGLOBIN 29.8 pg (27.0-33.0); MEAN CORPUSCULAR VOLUME 90.3 fl (80.0-96.0); MONO # 1.1 10^3/uL (0.0-0.8); MONO % 9.2 % (2.0-8.0); NEUTROPHILS % 60.6 % (36.0-66.0); PLATELET COUNT, AUTOMATED 328 10^3/uL (150-450); RED BLOOD COUNT 4.13 10^6/uL (4.30-6.10); WHITE BLOOD COUNT 11.6 10^3/uL (4.0-10.0)
[2024-02-12 08:02] LABS: INR 0.92; PARTIAL THROMBOPLASTIN TIME 34.7 SECONDS (24.8-34.2); PROTHROMBIN TIME 12.1 SECONDS (12.5-14.5)
== END ==
LOC: M LAB 07:15
PROVIDERS: ATTEND Physician Assistant Medical
DX: T14.8XXA Other injury of unspecified body region, initial encounter (principal)

== ENCOUNTER → 2024-02-12 | Outpatient (CLI) | payer OTHER | LOC: M RAD 14:16 | PROVIDERS: ATTEND Physician Assistant Medical | DX: Z53.9 Procedure and treatment not carried out, unspecified reason (principal) ==

== ENCOUNTER → 2024-02-12 | Outpatient (CLI) | payer OTHER | LOC: M RAD 12:04 | PROVIDERS: ATTEND Physician Assistant Medical | DX: R07.9 Chest pain, unspecified (principal) ==

== ENCOUNTER → 2024-02-17 | Outpatient (CLI) | payer OTHER ==
[2024-02-17 12:38] LABS: BASO # 0.1 10^3/uL (0.0-0.2); BASO % 0.5 % (0.0-1.0); EOS # 0.3 10^3/uL (0.0-0.5); EOS % 2.3 % (0.0-3.0); HEMATOCRIT 37.7 % (42.0-52.0); HEMOGLOBIN 12.4 g/dl (13.5-17.5); LYMPH % 25.3 % (24.0-44.0); MEAN CORPUSCULAR HEMOGLOBIN 29.6 pg (27.0-33.0); MEAN CORPUSCULAR HGB CONC 32.9 g/dl (32.0-36.5); MONO # 0.9 10^3/uL (0.0-0.8); MONO % 7.2 % (2.0-8.0); NEUTROPHILS # 7.7 10^3/uL (1.5-8.5); NEUTROPHILS % 64.2 % (36.0-66.0); PLATELET COUNT, AUTOMATED 263 10^3/uL (150-450); RED BLOOD COUNT 4.19 10^6/uL (4.30-6.10); WHITE BLOOD COUNT 11.9 10^3/uL (4.0-10.0)
[2024-02-17 13:06] LABS: ALKALINE PHOSPHATASE 137 U/L (46-116); ALT/SGPT 35 U/L (7.0-40); AST/SGOT 15 U/L (<34); BILIRUBIN,TOTAL 0.6 MG/DL (0.3-1.2); BLOOD UREA NITROGEN 12 MG/DL (9-23); CALCIUM LEVEL 9.7 MG/DL (8.5-10.1); CARBON DIOXIDE LEVEL 25 MMOL/L (20-31); CHLORIDE LEVEL 105 MMOL/L (98-107); CREATININE FOR GFR 0.67 MG/DL (0.70-1.30); GLOMERULAR FILTRATION RATE > 60.0 (>56); GLUCOSE, FASTING 235 MG/DL (60-100); POTASSIUM SERUM 4.2 MMOL/L (3.5-5.1); SODIUM LEVEL 136 MMOL/L (136-145); TOTAL PROTEIN 6.8 G/DL (5.7-8.2)
== END ==
LOC: M PLALAB 10:32
PROVIDERS: ATTEND Family Medicine
DX: R07.1 Chest pain on breathing (principal)

== ENCOUNTER 2024-02-29 15:05 | Emergency (ER) | payer OTHER ==
[~2024-02-29] VITALS: Ht 167.6 cm; Wt 83.6 kg
[2024-02-29] MEDS ORDERED: ISOVUE-370 76% 100ML VIAL As Ordered ONE (16:11)
[2024-02-29] MEDS: MORPHINE 2 MG/ML 1ML VIAL IV PRN (16:13)
[2024-02-29 16:15] LABS: BASO # 0.1 10^3/uL (0.0-0.2); BASO % 0.8 % (0.0-1.0); EOS # 0.2 10^3/uL (0.0-0.5); EOS % 2.4 % (0.0-3.0); HEMOGLOBIN 13.5 g/dl (13.5-17.5); LYMPH # 2.5 10^3/uL (1.5-5.0); LYMPH % 27.1 % (24.0-44.0); MEAN CORPUSCULAR HEMOGLOBIN 30.1 pg (27.0-33.0); MEAN CORPUSCULAR HGB CONC 34.6 g/dl (32.0-36.5); MEAN CORPUSCULAR VOLUME 87.1 fl (80.0-96.0); MONO # 0.8 10^3/uL (0.0-0.8); NEUTROPHILS # 5.5 10^3/uL (1.5-8.5); NEUTROPHILS % 60.4 % (36.0-66.0); PLATELET COUNT, AUTOMATED 281 10^3/uL (150-450); RED BLOOD COUNT 4.48 10^6/uL (4.30-6.10)
[2024-02-29 16:43] LABS: BLOOD UREA NITROGEN 11 MG/DL (9-23); CALCIUM LEVEL 9.6 MG/DL (8.5-10.1); CARBON DIOXIDE LEVEL 26 MMOL/L (20-31); CHLORIDE LEVEL 104 MMOL/L (98-107); CREATININE FOR GFR 0.66 MG/DL (0.70-1.30); GLOMERULAR FILTRATION RATE > 60.0 (>56); GLUCOSE, FASTING 175 MG/DL (60-100); SODIUM LEVEL 136 MMOL/L (136-145)
[2024-02-29 19:15] VITALS: BP 147/98
[2024-02-29] MEDS ORDERED: PERC5TAB12 PO (19:18)
[2024-02-29 19:25] VITALS: TEMP 98
[2024-02-29 19:32] VITALS: O2SAT 96
[2024-02-29] MEDS: PERCOCET 5MG/325MG TAB PO ONE (19:32)
== END 2024-02-29 19:45 | disposition home or self-care (01) ==
LOC: M ED 15:05
DX: S22.43XA Multiple fractures of ribs, bilateral, initial encounter for closed fracture (principal); J98.4 Other disorders of lung; Y92.9 Unspecified place or not applicable; Y93.9 Activity, unspecified; Y99.9 Unspecified external cause status; I10 Essential (primary) hypertension; F41.9 Anxiety disorder, unspecified; F32.A Depression, unspecified; F17.210 Nicotine dependence, cigarettes, uncomplicated; Z79.1 Long term (current) use of non-steroidal anti-inflammatories (NSAID); Z79.810 Long term (current) use of selective estrogen receptor modulators (SERMs); Z79.52 Long term (current) use of systemic steroids; Z79.899 Other long term (current) drug therapy
CPT/HCPCS: 71046; 71260; 80047; 80048; 85025; 86850; 86900; 86901; 93041; 94760; 96374; 99285; Q9967

== ENCOUNTER 2024-05-18 07:00 | Outpatient (RCR) | payer OTHER ==
[~2024-05-18 07:00] MED LIST changes: +PERC5TAB12 PO
[2024-05-24] MEDS ORDERED: AZIT-12 PO (03:48)
[2024-05-24] MEDS ORDERED: PRED10TA2 PO (03:48)
[2024-05-24] MEDS ORDERED: HYDR-3713 PO (03:48)
[2024-05-24] MEDS ORDERED: BENZ200C70 PO (03:48)
== END 2024-05-23 ==
LOC: M PT 07:00
PROVIDERS: ATTEND Family Medicine
DX: R29.898 Other symptoms and signs involving the musculoskeletal system (principal); M48.02 Spinal stenosis, cervical region

== ENCOUNTER 2024-05-23 22:09 | Emergency (ER) | payer OTHER ==
[~2024-05-23] VITALS: Ht 167.6 cm; Wt 86.8 kg
[2024-05-24] MEDS: methylPREDNISolone 125MG 2ML VIAL IV ONE (00:09)
[2024-05-24] MEDS: KETOROLAC 30 MG/ML 1ML VIAL IV ONE (00:10)
[2024-05-24] MEDS: diazePAM 10MG/2ML SYRINGE IV ONE (00:23)
[2024-05-24 01:42] LABS: BASO % 0.4 % (0.0-1.0); EOS # 0.1 10^3/uL (0.0-0.5); EOS % 1.3 % (0.0-3.0); HEMATOCRIT 36.8 % (42.0-52.0); HEMOGLOBIN 12.6 g/dl (13.5-17.5); LYMPH # 2.1 10^3/uL (1.5-5.0); LYMPH % 19.7 % (24.0-44.0); MEAN CORPUSCULAR HEMOGLOBIN 28.1 pg (27.0-33.0); MEAN CORPUSCULAR HGB CONC 34.2 g/dl (32.0-36.5); MEAN CORPUSCULAR VOLUME 82.1 fl (80.0-96.0); MONO # 0.6 10^3/uL (0.0-0.8); MONO % 5.9 % (2.0-8.0); NEUTROPHILS # 7.8 10^3/uL (1.5-8.5); NEUTROPHILS % 72.2 % (36.0-66.0); PLATELET COUNT, AUTOMATED 183 10^3/uL (150-450); RED BLOOD COUNT 4.48 10^6/uL (4.30-6.10); WHITE BLOOD COUNT 10.8 10^3/uL (4.0-10.0)
[2024-05-24 02:00] LABS: BLOOD UREA NITROGEN 15 MG/DL (9-23); CALCIUM LEVEL 9.6 MG/DL (8.5-10.1); CARBON DIOXIDE LEVEL 26 MMOL/L (20-31); CHLORIDE LEVEL 105 MMOL/L (98-107); CREATININE FOR GFR 0.68 MG/DL (0.70-1.30); GLOMERULAR FILTRATION RATE > 60.0 (>56); GLUCOSE, FASTING 284 MG/DL (60-100); POTASSIUM SERUM 3.5 MMOL/L (3.5-5.1); SODIUM LEVEL 137 MMOL/L (136-145)
[2024-05-24 03:12] LABS: PROCALCITONIN 0.05 ng/ml
[2024-05-24] MEDS ORDERED: AZIT-12 PO (03:48)
[2024-05-24] MEDS ORDERED: HYDR-3713 PO (03:48)
[2024-05-24] MEDS ORDERED: BENZ200C70 PO (03:48)
[2024-05-24] MEDS ORDERED: PRED10TA2 PO (03:48)
[2024-05-24] MEDS: AZITHROMYCIN 250MG TABLET PO ONE (04:10)
[2024-05-24] MEDS: NORCO 5/325MG TABLET (HOME DOSE PACK) PO ONE (04:16)
[2024-05-24 04:17] VITALS: BP 146/91; TEMP 97.8; O2SAT 97
== END 2024-05-24 04:25 | disposition home or self-care (01) ==
LOC: EDBD 22:09 → M ED 22:09
DX: S22.31XA Fracture of one rib, right side, initial encounter for closed fracture (principal); X58.XXXA Exposure to other specified factors, initial encounter; Y92.009 Unspecified place in unspecified non-institutional (private) residence as the place of occurrence of the external cause; Y93.9 Activity, unspecified; Y99.9 Unspecified external cause status; R05.9 Cough, unspecified; I10 Essential (primary) hypertension; K57.92 Diverticulitis of intestine, part unspecified, without perforation or abscess without bleeding; Z86.73 Personal history of transient ischemic attack (TIA), and cerebral infarction without residual deficits; Z87.891 Personal history of nicotine dependence; Z79.82 Long term (current) use of aspirin; Z79.899 Other long term (current) drug therapy
CPT/HCPCS: 71250; 72128; 80048; 83605; 84145; 85025; 87040; 87486; 87581; 87633; 87798; 96374; 96375; 99284; J1885; J2919; J3360

== ENCOUNTER 2024-06-23 17:47 | Emergency (ER) | payer OTHER ==
[~2024-06-23] VITALS: Ht 167.6 cm; Wt 85.7 kg
[~2024-06-23 17:47] MED LIST changes: +AZIT-12 PO; +BENZ200C70 PO; +HYDR-3713 PO; +PRED10TA2 PO
[2024-06-23] MEDS: NORCO, ANEXSIA 5/325MG TABLET (HYDROcodone/ACETAMINOPHEN) PO ONE (22:20)
[2024-06-23 23:25] VITALS: BP 155/64; TEMP 97; O2SAT 95
[2024-06-23] MEDS ORDERED: HYDR-3713 PO (23:33)
== END 2024-06-23 23:50 | disposition home or self-care (01) ==
LOC: M ED 17:47
DX: J98.4 Other disorders of lung (principal); R07.89 Other chest pain; I10 Essential (primary) hypertension; K57.92 Diverticulitis of intestine, part unspecified, without perforation or abscess without bleeding; Z79.82 Long term (current) use of aspirin; Z79.899 Other long term (current) drug therapy

== ENCOUNTER → 2024-07-07 | Outpatient (CLI) | payer OTHER | LOC: M WHC 09:20 | PROVIDERS: ATTEND Thoracic Surgery (Cardiothoracic Vascular Surgery) | DX: S22.41XA Multiple fractures of ribs, right side, initial encounter for closed fracture (principal) ==

== ENCOUNTER → 2025-03-05 | Outpatient (CLI) | payer OTHER ==
[~2025-03-05] MED LIST changes: -AMBI10TA PO; -BUPR-597; -BUPR-597 PO; +BUPR-766; +BUPR-766 PO; -IBUP-1022 PO; +IBUP600T42 PO; +ZOLP-533 PO; +ZOLP10TA11 PO; -ZOLP10TA2 PO
[2025-03-05 12:12] LABS: PSA SCREENING 0.84 NG/ML (< 4.00)
[2025-03-05 12:16] LABS: TOTAL 25(OH) VITAMIN D 28.1 NG/ML (20.0-100.0)
[2025-03-05 12:27] LABS: ESTIMATED AVERAGE GLUCOSE 326.0 MG/DL (60-110)
[2025-03-05 12:29] LABS: CHOLESTEROL LEVEL 379 MG/DL (<200); CHOLESTEROL RISK RATIO 11.73 (<5); NON-HDL-C 346.7 MG/DL; PTH INTACT 44.1 PG/ML (18.5-88.0); TRIGLYCERIDES LEVEL 2661 MG/DL (<150)
[2025-03-08 13:57] LABS: RUBEOLA IgG ANTIBODY 52.50 AU/mL (>16.49)
== END ==
LOC: M PLALAB 06:57
PROVIDERS: ATTEND Family Medicine
DX: Z01.84 Encounter for antibody response examination (principal); E78.1 Pure hyperglyceridemia; R73.01 Impaired fasting glucose; Z12.5 Encounter for screening for malignant neoplasm of prostate; S22.41XD Multiple fractures of ribs, right side, subsequent encounter for fracture with routine healing; Z11.1 Encounter for screening for respiratory tuberculosis

== ENCOUNTER → 2025-03-09 | Outpatient (CLI) | payer OTHER | LOC: M PLALAB 10:32 | PROVIDERS: ATTEND Family Medicine | DX: Z11.1 Encounter for screening for respiratory tuberculosis (principal) ==

== ENCOUNTER → 2025-06-11 | Outpatient (REF) | payer OTHER | LOC: M SFHCPLAZ 11:24 | PROVIDERS: ATTEND Family Medicine | DX: Z53.9 Procedure and treatment not carried out, unspecified reason (principal) ==

== ENCOUNTER → 2025-06-11 | Outpatient (CLI) | payer OTHER ==
[2025-06-11 16:04] LABS: PLATELET COUNT, AUTOMATED 191 10^3/uL (150-450)
[2025-06-11 17:10] LABS: ALT/SGPT 45 U/L (7.0-40); AST/SGOT 32 U/L (<34); CALCIUM LEVEL 9.2 MG/DL (8.5-10.1); CARBON DIOXIDE LEVEL 23 MMOL/L (20-31); CHLORIDE LEVEL 95 MMOL/L (98-107); CHOLESTEROL LEVEL 457 MG/DL (<200); CHOLESTEROL RISK RATIO 13.93 (<5); CREATININE FOR GFR 0.46 MG/DL (0.70-1.30); FREE T4 1.04 NG/DL (0.89-1.76); GLOMERULAR FILTRATION RATE > 90.0 (>56); NON-HDL-C 424.2 MG/DL; POTASSIUM SERUM 4.1 MMOL/L (3.5-5.1); SODIUM LEVEL 130 MMOL/L (136-145); TRIGLYCERIDES LEVEL 3116 MG/DL (<150); VITAMIN B12 LEVEL 433 PG/ML (211-911)
[2025-06-11 17:36] LABS: ESTIMATED AVERAGE GLUCOSE 344.0 MG/DL (60-110)
== END ==
LOC: M PLALAB 12:02
PROVIDERS: ATTEND Family Medicine
DX: M19.072 Primary osteoarthritis, left ankle and foot (principal); M79.671 Pain in right foot; M79.2 Neuralgia and neuritis, unspecified